=== PATIENT | female | born 1950 | race Caucasian/White ===

== ENCOUNTER 2018-03-05 10:16 | Outpatient (CLI) | payer BC, SELFPAY ==
[2018-03-05 14:16] LABS: Abs Immature Grans 0.01 k/cumm (0.0-0.09); Absolute Basophil Count 0.02 k/cumm (0.0-0.2); Absolute Eosinophil Count 0.19 k/cumm (0.0-0.7); Absolute Lymphocyte Count 1.12 k/cumm (1.2-3.4); Absolute Monocyte Count 0.37 k/cumm (0.11-0.7); Absolute Neutrophil Count 4.49 k/cumm (1.2-6.7); Basophils % 0.3; Eosinophils % 3.1; HCT 39.4 % (36.0-46.0); HGB 13.2 g/dL (12.0-15.5); Immature Grans % 0.2; Lymphocytes % 18.1; Mean Corp. HGB Concentration 33.5 g/dL (32.0-36.0); Mean Corpuscular Hemoglobin 30.6 pg (27.0-33.0); Mean Corpuscular Volume 91.2 fL (80-95); Mean Platelet Volume 11.3 fL (8.0-11.0); Neutrophils % 72.3; Platelet Count 192 x1000/uL (130-400); RBC 4.32 m/cumm (4.00-5.20); RBC Distribution Width 14.7 % (11.7-14.6)
[2018-03-05 15:22] LABS: Iron 53 ug/dL (50-175); Total Iron Binding Capacity 286 ug/dL (250-450); Transferrin Sat 19 % (15-50)
== END 2018-03-05 10:36 ==
PROVIDERS: PCP Internal Medicine; Visit Provider Internal Medicine
DX: D64.9 Anemia, unspecified (principal)
CPT/HCPCS: 36415; 83540; 83550; 85025

== ENCOUNTER 2018-03-17 13:45 | Outpatient (CLI) | payer BC, SELFPAY ==
[2018-03-17 17:18] LABS: Abs Immature Grans 0.01 k/cumm (0.0-0.09); Absolute Basophil Count 0.02 k/cumm (0.0-0.2); Absolute Eosinophil Count 0.19 k/cumm (0.0-0.7); Absolute Lymphocyte Count 1.34 k/cumm (1.2-3.4); Absolute Monocyte Count 0.39 k/cumm (0.11-0.7); Basophils % 0.3; Eosinophils % 2.9; HCT 40.2 % (36.0-46.0); HGB 13.4 g/dL (12.0-15.5); Immature Grans % 0.2; Lymphocytes % 20.8; Mean Corp. HGB Concentration 33.3 g/dL (32.0-36.0); Mean Corpuscular Hemoglobin 30.3 pg (27.0-33.0); Mean Platelet Volume 11.1 fL (8.0-11.0); Neutrophils % 69.8; Platelet Count 183 x1000/uL (130-400); RBC 4.42 m/cumm (4.00-5.20); RBC Distribution Width 14.9 % (11.7-14.6); White Blood Cell Count 6.45 k/cumm (4.4-10.8)
[2018-03-17 17:53] LABS: ALT 40 U/L (12-78); AST 22 U/L (15-37); Albumin 3.8 g/dL (3.4-5.0); Alkaline Phosphatase 87 U/L (46-116); Anion Gap 8.4 mmol/L (3-11); BUN 25 mg/dL (7-18); Bilirubin, Total 0.6 mg/dL (0.2-1.0); CO2 27.6 mmol/L (21.0-32.0); CREATININE 0.95 mg/dL (0.55-1.02); Chloride 105 mmol/L (98-107); Estimated GFR 58.85 (mL/min/1.73m2); Glucose 87 mg/dL (70-100); Potassium 3.9 mmol/L (3.5-5.1); Sodium 141 mmol/L (136-145); Total Protein 6.9 g/dL (6.4-8.2)
== END 2018-03-17 14:05 ==
PROVIDERS: PCP Internal Medicine; Visit Provider Internal Medicine
DX: Z85.3 Personal history of malignant neoplasm of breast (principal)
CPT/HCPCS: 36415; 80053; 85025

== ENCOUNTER 2019-02-19 00:20 | Outpatient (CLI) | payer BC, SELFPAY ==
[2019-02-19 11:02] LABS: Abs Immature Grans 0.01 k/cumm (0.0-0.09); Absolute Basophil Count 0.04 k/cumm (0.0-0.2); Absolute Eosinophil Count 0.31 k/cumm (0.0-0.7); Absolute Lymphocyte Count 1.16 k/cumm (1.2-3.4); Absolute Monocyte Count 0.33 k/cumm (0.11-0.7); Absolute Neutrophil Count 2.84 k/cumm (1.2-6.7); Basophils % 0.9; Eosinophils % 6.6; HCT 40.4 % (36.0-46.0); HGB 13.4 g/dL (12.0-15.5); Immature Grans % 0.2; Lymphocytes % 24.7; Mean Corp. HGB Concentration 33.2 g/dL (32.0-36.0); Mean Corpuscular Hemoglobin 29.8 pg (27.0-33.0); Neutrophils % 60.6; Platelet Count 199 x1000/uL (130-400); RBC 4.49 m/cumm (4.00-5.20); RBC Distribution Width 14.4 % (11.7-14.6); White Blood Cell Count 4.69 k/cumm (4.4-10.8)
[2019-02-19 12:20] LABS: Iron 66 ug/dL (50-175); Total Iron Binding Capacity 295 ug/dL (250-450); Transferrin Sat 22 % (15-50)
[2019-02-19 12:23] LABS: ALT 31 U/L (14-59); AST 17 U/L (15-37); Albumin 3.7 g/dL (3.4-5.0); Alkaline Phosphatase 81 U/L (46-116); Anion Gap 9.6 mmol/L (3-11); BUN 25 mg/dL (7-18); Bilirubin, Total 0.9 mg/dL (0.2-1.0); CO2 26.4 mmol/L (21.0-32.0); CREATININE 1.14 mg/dL (0.55-1.02); Calcium 8.9 mg/dL (8.5-10.1); Chloride 108 mmol/L (98-107); Estimated GFR 47.54 (mL/min/1.73m2); Glucose 97 mg/dL (70-100); Potassium 4.4 mmol/L (3.5-5.1); Sodium 144 mmol/L (136-145); Total Protein 6.6 g/dL (6.4-8.2)
== END 2019-02-19 00:40 ==
PROVIDERS: PCP Internal Medicine; Visit Provider Internal Medicine
DX: I10 Essential (primary) hypertension (principal); D64.9 Anemia, unspecified; R50.9 Fever, unspecified
CPT/HCPCS: 36415; 80053; 83540; 83550; 85025

== ENCOUNTER 2020-01-30 04:06 | Outpatient (CLI) | payer OTHER, SELFPAY ==
[2020-01-30 17:22] LABS: CREATININE 1.23 mg/dL (0.55-1.02); Estimated GFR 43.42 (mL/min/1.73m2); Glucose 92 mg/dL (74-106)
[2020-01-30 17:49] LABS: Calculated LDL 125 mg/dL (<100); Cholesterol 205 mg/dL (<200); HDL Cholesterol 53 mg/dL (40-60); Triglyceride 137 mg/dL (<150)
== END 2020-01-30 04:26 ==
PROVIDERS: Nurse Practitioner Family; PCP Nurse Practitioner; Visit Provider Nurse Practitioner
DX: I10 Essential (primary) hypertension (principal); D05.10 Intraductal carcinoma in situ of unspecified breast
CPT/HCPCS: 36415; 80061; 82947; 82565

== ENCOUNTER 2021-02-07 02:11 | Outpatient (CLI) | payer OTHER, SELFPAY ==
[2021-02-07 16:39] LABS: CREATININE 1.1 mg/dL (0.55-1.02); Calculated LDL 110 mg/dL (<100); Cholesterol 203 mg/dL (<200); Estimated GFR 49.25 (mL/min/1.73m2); HDL Cholesterol 51 mg/dL (40-60); Triglyceride 210 mg/dL (<150)
== END 2021-02-07 02:12 | disposition home or self-care (01) ==
LOC: LBO 02:11
PROVIDERS: PCP Nurse Practitioner; Visit Provider Nurse Practitioner
DX: I10 Essential (primary) hypertension (principal); Z13.6 Encounter for screening for cardiovascular disorders
CPT/HCPCS: 36415; 80061; 82565

== ENCOUNTER 2021-04-04 02:15 | Outpatient (CLI) | payer OTHER, SELFPAY ==
--- NOTE | 2021-04-04 07:00 | DI.DEXA_ITS ---
Exam(s) XR DEXA BONE DENSITY W/WO OPAL EXAM: XR DEXA BONE DENSITY W/WO OPAL CLINICAL HISTORY: SCREENING FOR OSTEOPOROSIS IN POSTMENOPAUSAL WOMAN,Z78.0 TECHNIQUE: Eptica C densitometer COMPARISON: No exams were available for comparison FINDINGS: Lateral view of the thoracic and lumbar spine shows no evidence of compression fractures. Degenera tive changes are noted greatest at L2-3. Bone mineral density measurements of the lumbar spine correspond to a total T-score of 0.2, in the n ormal range. Bone mineral density measurements of the left hip correspond to a total T-score of -0.7. The femora l neck T-score is -1.7, in the osteopenic range. . The left forearm bone mineral density measurements correspond to a T-score of the distal 3rd of nega tive 2.7, in the osteoporotic range.. IMPRESSION: Osteopenia of the left femoral neck. Normal bone mineral density of the lumbar spine. Osteoporosis of the forearm.
== END 2021-04-04 02:35 ==
PROVIDERS: PCP Nurse Practitioner; Visit Provider Nurse Practitioner
DX: M81.0 Age-related osteoporosis without current pathological fracture (principal); M85.88 Other specified disorders of bone density and structure, other site; Z78.0 Asymptomatic menopausal state
CPT/HCPCS: 77080

== ENCOUNTER 2021-07-25 02:27 | Outpatient (CLI) | payer MEDICARE, SELFPAY ==
[2021-07-25 16:58] LABS: COMMENT (LAB VIEW ONLY) 203.16 mg/dL; Microalb ug/mg Crea 4.4 ug/mg Cr
[2021-07-25 17:48] LABS: Anion Gap 9.3 mmol/L (3-11); BUN 24 mg/dL (7-18); CO2 28.7 mmol/L (21.0-32.0); CREATININE 1.1 mg/dL (0.55-1.02); Calcium 9.1 mg/dL (8.5-10.1); Calculated LDL 85 mg/dL (<100); Chloride 106 mmol/L (98-107); Cholesterol 165 mg/dL (<200); Estimated GFR 49.25 (mL/min/1.73m2); Glucose 105 mg/dL (74-106); HDL Cholesterol 54 mg/dL (40-60); Sodium 144 mmol/L (136-145); Triglyceride 132 mg/dL (<150)
== END 2021-07-25 02:28 | disposition home or self-care (01) ==
PROVIDERS: PCP Nurse Practitioner; Visit Provider Nurse Practitioner
DX: N18.31 Chronic kidney disease, stage 3a (principal); E78.5 Hyperlipidemia, unspecified
CPT/HCPCS: 36415; 80048; 80061; 82043; 82570

== ENCOUNTER 2023-01-27 02:33 | Outpatient (CLI) | payer MEDICARE, SELFPAY ==
[2023-01-27 08:50] LABS: Absolute Basophil Count 0.06 10^3/uL (0.0-0.2); Absolute Eosinophil Count 0.18 10^3/uL (0.0-0.7); Absolute Lymphocyte Count 1.15 10^3/uL (1.2-3.4); Absolute Monocyte Count 0.29 10^3/uL (0.1-0.8); Absolute Neutrophil Count 3.06 10^3/uL (1.2-6.7); Basophils % 1.3; Eosinophils % 3.8; HCT 40.4 % (36.0-46.0); HGB 13.4 g/dL (11.2-15.7); Lymphocytes % 24.3; MCHC 33.2 % (32.0-36.0); MCV 90 fL (80-95); MPV 10.3 fL (8.0-11.0); Monocytes % 6.1; Neutrophils % 64.5; Platelet Count 194 10^3/uL (130-400); RBC 4.47 10^6/uL (3.93-5.22); RDW 14.2 % (11.7-14.6); RDW-SD 47.3 fL; WBC 4.74 10^3/uL (4.4-10.8)
[2023-01-27 09:03] LABS: ALT 27 U/L (14-59); AST 18 U/L (15-37); Albumin 3.5 g/dL (3.4-5.0); Alkaline Phosphatase 88 U/L (46-116); Anion Gap 6.5 mmol/L (3-11); BUN 14 mg/dL (7-18); Bilirubin, Total 0.9 mg/dL (0.2-1.0); CO2 27.5 mmol/L (21.0-32.0); CREATININE 1.1 mg/dL (0.55-1.02); Calcium 9.1 mg/dL (8.5-10.1); Chloride 108 mmol/L (98-107); Estimated GFR 53.72 (mL/min/1.73m2); Glucose 105 mg/dL (74-106); Potassium 4.3 mmol/L (3.5-5.1); Sodium 142 mmol/L (136-145); Total Protein 6.9 g/dL (6.4-8.2)
== END 2023-01-27 02:34 | disposition home or self-care (01) ==
LOC: LBO 02:33
PROVIDERS: PCP Nurse Practitioner Family; Visit Provider Internal Medicine
DX: Z85.3 Personal history of malignant neoplasm of breast (principal)
CPT/HCPCS: 36415; 80053; 85025

== ENCOUNTER 2024-04-15 00:20 | Outpatient (CLI) | payer MEDICARE, SELFPAY ==
--- OUTSIDE RECORDS SUMMARY | 2024-04-15 00:34 | XMS_ITS | Clinical Summary ---
Author Organization [facility] Address [address] [place] [address] Care Team Providers Care Stone Finisher Name Role Phone Linda Coleman MD Primary Care Provider Social History Tobacco Use Types Packs/Day Years Used Date Smoking Tobacco: Never Assessed Comments Unknown Sex and Gender Information Value Date Recorded Sex Assigned at Not on file Legal Sex Female 18:19 EST Gender Identity Not on file Sexual Orientation Not on file Plan of Treatment Health Maintenance Due Date Last Done Comments Hepatitis C Screen 1950 Fall Risk Screening 11/19/2016 COVID-19 Vaccine (2023-25 season) 2023 RSV Immunization ( o r 60+ Years) (1 - 1-dose 75+ series) 11/19/2026 Care Teams Stone Finisher Relationship Specialty Start Date End Date Linda Coleman MD [address] [place] [address] PCP - General 02/16/15
--- OUTSIDE RECORDS SUMMARY | 2024-04-15 00:34 | XMS_ITS | Encounter Summary ---
Author Organization [facility] Address [address] [place] [address] Care Team Providers Care Oil Rigger Name Role Phone Unavailable Primary Care Provider Unavailabl e Encounter Details Date Type Department Care Team (Late st Contact Info) Description 04/08/2001 Results Only [facility] - [facility] [address] [place] [address] Suraj Leach, DO [address] [facility] [address] [place], [place] [id number] Social History Tobacco Use Types Packs/Day Years Used Date Smoking Tobacco: Never Assessed Comments Unknown Sex and Gender Information Value Date Recorded Sex Assigned at Not on file Legal Sex Female 18:19 EST Gender Identity Not on file Sexual Orientation Not on file documented as of this encounter Plan of Treatment Not on file documented as of this encounter Procedures Procedure Name Priority Date/Time Associated Diagnosis Comments SURGICAL PATHOLOGY Routine 04/08/2001 0:00 EST documented in this encounter Results * SURGICAL PATHOLOGY (04/08/2001 0:00 EST) Pathology Report: SURGICAL PATHOLOGY REPORT Reports generated via electronic interface contain original data; however they are lacking the format of the original report. Caution should be taken when reading/interpreti ng unformatted reports. Name: ? ANGELA CASPER ? Accession #: ? [id number] ? : ? 1950 (Age: 50) ??F ? Collect Date: ? 04/08/2001 ? Location: ? [facility] ? Receive Date: ? 04/08/2001 ? Provider: SURAJ LEACH DO Copy to: FERNANDA BECKFORD MD ? Final Pathologic Diagnosis: A. ?Skin of arm, right upper, excisional biopsy: 1. ?Melanocytic nevus, intradermal type. B. ?Cecum, polyp, polypectomy: 1. ?Tubular adenoma. 2. ?No high grade dysplasia identified. Document reviewed and electronically signed by: Osmani Scott MD Report ??Date: 04/12/2001 10:57 By the signature above, the attending physician certifies that he/she has personally conducted a gross and/or microscopic examination of the described specimens and rendered or confirmed the above diagnosis. Specimen(s) Received: A. ?Skin lesion, rt upper arm (#1) B. ?Cecal polyp Clinical History: ? Family hx of colon ca Gross Description: ? Received in formalin labelled Garrett and 1. Skin lesion rt upper arm is a tom, unoriented, 2.5 x 1.0 cm skin ellipse excised to a depth of 0.6 cm. There is a central, tom-valle, granular, hear bearing, 1.0 x 0.9 x 0.2 cm papule. The specimen is inked, serially sectioned, and is entirely submitted as (A1) through (A4) with the distal tips submitted reverse en face as (A4). Received in Hollande' s fixative labelled Garrett and 2. Cecal polyp is a tom, irregular, 0.4 x 0.2 x 0.2 cm soft tissue fragment. ??The specimen is entirely submitted as (B). ??(Sari Anaya)/dtl End of Report [facility] 04/08/2001 04/08/2001 15: 24 EST Suraj Leach DO PATHOLOGY ORDERABLES Fi nal Result [facility] [address] [place] [address] documented in this encounter Visit Diagnoses Not on filedocumented in this encounter
--- OUTSIDE RECORDS SUMMARY | 2024-04-15 00:34 | XMS_ITS | Encounter Summary ---
Author Organization [facility] Address [address] [place] [address] Care Team Providers Care Recruit Instructor Name Role Phone Linda Coleman MD Primary Care Provider [phone] Encounter Details Date Type Department Care Team (Late st Contact Info) Description 05/15/2015 Results Only [facility] [phone] Greer Dasilva, MARLENY [address] [phone] Social History Tobacco Use Types Packs/Day Years [...] Procedure Name Priority Date/Time Associated Diagnosis Comments PAP TEST- RESULT ONLY Routine 05/15/2015 0:00 EST documented in this encounter Results * PAP TEST- RESULT ONLY (05/15/2015 0:00 EST) Pathology Report: CYTOPATHOLOGY REPORT Reports generated via electronic interface contain original data; however they are lacking the format of the original report. Caution should be taken when reading/interpreti ng unformatted reports. Name: ? ANGELA TUCKER ? Accession #: ? [id number] ? : ? 1950 (Age: 64) ??F ?Collect Date: ? 05/15/2015 ? Location: ? [facility] ? Receive Date: ? 05/17/2015 ? Provider: GREER DASILVA ENGRAVER HAND HARD METALS Copy to: ? Final Report SPECIMEN ADEQUACY ? Satisfactory for Evaluation - transformation zone component present GENERAL CATEGORIZATION ? Negative for Intraepithelial Lesion or Malignancy ?? Treatment History: Hysterectomy: S/P Partial Specimen/Source: ??Pap Test, Cervix/Endocervix, ThinPrep Imaging System with manual evaluation Document reviewed and electronically signed by: ? Asad Cook, CT(ASCP) ? Report ??Date: 05/22/2015 15:05 HPV with Pap Test ? Date Ordered: ? 05/22/2015 ? Status: ?? Signed Out ?Date Complete: ? 05/24/2015 ? By: ??System Interface ? Date Reported: ? 05/24/2015 ? Interpretation RESULT: Negative for HPV. No E6 or E7 mRNA is detected from HPV types 16,18,31,33,35, 39,45,51,52,56,58, 59,66, and 68 by personal consultant mediated amplification. Comments Document reviewed and electronically signed by: ? System Interface ? Report date: 05/24/2015 By the signature above, the attending physician certifies that he/she has personally conducted a gross and/or microscopic examination of the described specimens and rendered or confirmed the above diagnosis. End of Report [facility] 05/15/2015 05/17/2015 us Greer Dasilva ENGRAVER HAND HARD METALS PATHOLOGY ORDERABLES Final Resul t [facility] [address] [place] [address] documented in this encounter Visit Diagnoses Not on filedocumented in this encounter Care Teams Recruit Instructor Relationship Specialty Start Date End Date Linda Coleman MD [address] [place], [place] [phone] PCP - General 02/16/15 documented as of this encounter
--- OUTSIDE RECORDS SUMMARY | 2024-04-15 00:34 | XMS_ITS | Encounter Summary ---
Author Organization [facility] Address [address] [place] [address] Care Team Providers Care School Plant Consultant Name Role Phone Unavailable Primary Care Provider Unavailabl e Encounter Details Date Type Department Care Team (Late st Contact Info) Description 11/28/2008 Orders Only [facility] ([facility]) [address] [place] [address] [phone] Vicky Doyle PA Social History Tobacco Use Types Packs/Day Years [...] Procedure Name Priority Date/Time Associated Diagnosis Comments HPV DETECTION, HIGH RISK TYPES Routine 11/28/2008 8:57 EDT CYTOPATHOLOGY Routine 11/28/2008 0:00 EDT documented in this encounter Results * HUMAN PAPILLOMA VIRUS DNA TEST (11/28/2008 8:57 EDT) Specimen Description Cervix, ThinPrep vial [facility] Result Negative for HPV types 16, 18, 31, 33, 35, 39, 45, 51, 52, 56, 58, 59, and 68. [facility] Report Status Final 12/07/2008 [facility] 11/28/2008 8:57 EDT 12/05/2008 8:57 EDT Vicky CONNELL MICROBIOLOGY - GENERAL ORDERABLE S Final Result [facility] [address] [address] * CYTOPATHOLOGY (11/28/2008 0:00 EDT) Pathology Report: CYTOPATHOLOGY REPORT ? Reports generated via electronic interface contain original data; ? however they are lacking the format of the original report. ? Caution should be taken when reading/interpreti ng unformatted reports. ? Name: ? ANGELA CASPER ? Accession #: ? [id number] ? : ? 1950 (Age: 58) ??F ?Collect Date: ? 11/28/2008 ? Location: ? [facility] ? Receive Date: ? 11/29/2008 ? Provider: ?VICKY SERGO PA ? Copy to: ? Specimen/Source: ?Pap Test, Cervix/Endocervix, ThinPrep Imaging System ? with manual evaluation ? Last Menstrual Period: ? Menstrual/Pregnanc y Status: ? Post Menopausal ? Treatment History: ? Hysterectomy: partial 2000 ? Other: ? HPVDX - HPV testing requested regardless of diagnosis on current ThinPrep Pap ?? test. ? SPECIMEN ADEQUACY ? Satisfactory for Evaluation ? - transformation zone component present ? GENERAL CATEGORIZATION ? Negative for Intraepithelial Lesion or Malignancy ? Document reviewed and electronically signed by: ? Olivia Loulou, CT(ASCP) ? Report Date: ??12/04/2008 14:14 ? End of Report ? [facility] 11/28/2008 11/29/2008 us Vicky CONNELL PATHOLOGY ORDERABLES Final Resul t Performing Organization Address City/State/[facility] Co de Phone Number [facility] [address] [place] [address] documented in this encounter Visit Diagnoses Not on filedocumented in this encounter
--- OUTSIDE RECORDS SUMMARY | 2024-04-15 00:34 | XMS_ITS | Encounter Summary ---
Author Organization [facility] Address [address] [place] [address] Care Team Providers Care Brine Process Operator Name Role Phone Unavailable Primary Care Provider Unavailabl e Encounter Details Date Type Department Care Team (Late st Contact Info) Description 09/06/2004 Results Only [facility] - Maple conversion [address] [place] [address] Suraj Leach, DO [address] [facility] [address] [place], [place] [phone] Social History Tobacco Use Types Packs/Day Years [...] Date/Time Associated Diagnosis Comments SURGICAL PATHOLOGY Routine 09/06/2004 0:00 EDT documented in this encounter Results * SURGICAL PATHOLOGY (09/06/2004 0:00 EDT) Pathology Report: SURGICAL PATHOLOGY REPORT Reports generated via electronic interface contain original data; however they are lacking the format of the original report. Caution should be taken when reading/interpreti ng unformatted reports. Name: ? ANGELA CASPER ? Accession #: ? [id number] ? : ? 1950 (Age: 53) ??F ? Collect Date: ? 09/06/2004 ? Location: ? [facility] ? Receive Date: ? 09/06/2004 ? Provider: SURAJ LEACH DO Copy to: KATE BECKFORD MD ? Final Pathologic Diagnosis: ? Colon, cecum, polyp, biopsy: - Tubular adenoma. Document reviewed and electronically signed by: LAZ GRAHAM MD Report ??Date: 09/11/2004 10:07 By the signature above, the attending physician certifies that he/she has personally conducted a gross and/or microscopic examination of the described specimens and rendered or confirmed the above diagnosis. Specimen(s) Received: ? Bx cecum Clinical History: ? Colonoscopy; PMH approximately four years ago adenomatous polyp Gross Description: ? Received in Hollande' s fixative labeled Garrett and bx cecum is a single 0.3 x 0.3 x 0.2 cm portion of soft tissue. ??The specimen is submitted intact in one cassette. ??(Dr. Tavares Houston-)/[facility] End of Report [facility] 09/06/2004 09/06/2004 9:4 9 EDT us Suraj Leach DO PATHOLOGY ORDERABLES Fi nal Result [facility] [address] [place] [address] documented in this encounter Visit Diagnoses Not on filedocumented in this encounter
--- OUTSIDE RECORDS SUMMARY | 2024-04-15 00:34 | XMS_ITS | Referral Summary ---
Author Organization [facility] Address [address] [place] [address] Care Team Providers Care State Director Name Role Phone Linda Coleman MD Primary Care Provider [phone] Social History Tobacco Use Types Packs/Day Years Used Date Smoking Tobacco: Never Assessed Comments Unknown Sex and Gender Information Value Date Recorded Sex Assigned at Not on file Legal Sex Female 18:19 EST Gender Identity Not on file Sexual Orientation Not on file Plan of Treatment Not on file Care Teams State Director Relationship Specialty Start Date End Date Linda Coleman MD [address] [place] [address] PCP - General 02/16/15
--- NOTE | 2024-04-15 11:20 | DI.MAMMO_ITS ---
Exam(s) MG MAMMO SCREENING 60 MIN DUR EXAM: MG MAMMO SCREENING 60 MIN DUR CLINICAL HISTORY: breast cancer screening,personal h/o breast ca,z12.31. TECHNIQUE: Bilateral full field digital CC and MLO mammographic images were obtained with 3D tomosyn thesis and utilizing computer aided detection (CAD). COMPARISON: Prior outside mammograms were reviewed. FINDINGS: Left breast lumpectomy site remains stable. There are no new significant left breast findings. Small benign-appearing nodule located laterally in the right breast is unchanged from prior mammogram s. There are no new spiculated masses nor malignant appearing microcalcification groups. There is no significant architectural distortion nor skin thickening-retraction. IMPRESSION: 1. Stable appearing left breast lumpectomy site. No radiographic evidence of malignancy in left [address]. 2. Stable benign-appearing right breast findings. BI-RADS Category 2 - Benign Findings Breast Density - Category B - Scattered areas of fibroglandular density Breast density Category C or D implies that the patient has dense breast tissue. Dense breast tissue can make it harder to find cancer on a mammogram. Dense breast tissue is also associated with an incr eased risk of breast cancer. This information about the result of the mammogram report was provided to the patient to raise their awareness. Use this report when you speak with the patient about their risks for breast cancer, which includes their family history. At that time, you may recommend additional screening tests (Ultrasoun d or MRI) as these tests may add significant information. A negative radiographic report should not delay biopsy if a dominant or clinically suspicious mass is present. Up to ten percent of cancers are not identified on mammography. A negative report may reinforce clinical impression. Adenosis and dense breasts may obscure an underlying neoplasm. False positive reports average 6 to 10%. Patient will receive a letter notifying them of these results.
== END 2024-04-15 00:40 ==
PROVIDERS: PCP Nurse Practitioner Family; Visit Provider Nurse Practitioner Family
DX: Z12.31 Encounter for screening mammogram for malignant neoplasm of breast (principal); R92.323 Mammographic fibroglandular density, bilateral breasts; D24.1 Benign neoplasm of right breast; D24.2 Benign neoplasm of left breast
CPT/HCPCS: 77063; 77067

== ENCOUNTER 2024-05-12 22:34 | Outpatient (REF) | payer MEDICARE, SELFPAY ==
[2024-05-12 22:29] LABS: Anion Gap 7.3 mmol/L (3-11); BUN 21 mg/dL (7-18); CO2 25.7 mmol/L (21.0-32.0); Calcium 9.7 mg/dL (8.5-10.1); Chloride 109 mmol/L (98-107); Estimated GFR 59.86 (mL/min/1.73m2); Glucose 90 mg/dL (74-106); Potassium 4.2 mmol/L (3.5-5.1); Sodium 142 mmol/L (136-145)
== END 2024-05-12 22:35 | disposition home or self-care (01) ==
LOC: LBN 22:34
PROVIDERS: PCP Nurse Practitioner Family; Visit Provider Nurse Practitioner Family
DX: I10 Essential (primary) hypertension (principal)
CPT/HCPCS: 80048

== ENCOUNTER 2024-10-04 16:33 | Outpatient (REF) | payer MEDICARE, SELFPAY ==
[2024-10-04 21:21] LABS: Anion Gap 8.8 mmol/L (3-11); BUN 26 mg/dL (7-18); CO2 25.2 mmol/L (21.0-32.0); CREATININE 1.1 mg/dL (0.55-1.02); Calcium 9.7 mg/dL (8.5-10.1); Chloride 105 mmol/L (98-107); Estimated GFR 53.39 (mL/min/1.73m2); Glucose 83 mg/dL (74-106); Hemoglobin A1C 5.5 % (<5.7); Potassium 4.4 mmol/L (3.5-5.1); Sodium 139 mmol/L (136-145); TSH (W/Ref FT4) 4.08 uIU/mL (0.36-3.74)
[2024-10-04 21:41] LABS: FREE T4 0.89 ng/dL (0.76-1.46)
== END 2024-10-04 16:34 | disposition home or self-care (01) ==
LOC: LBN 16:33
PROVIDERS: PCP Nurse Practitioner Family; Visit Provider Nurse Practitioner Family
DX: R73.9 Hyperglycemia, unspecified (principal); R63.5 Abnormal weight gain
CPT/HCPCS: 80048; 83036; 84439; 84443

== ENCOUNTER 2025-02-14 01:21 | Outpatient (CLI) | payer MEDICARE, SELFPAY ==
[2025-02-14 09:55] LABS: Abs Immature Grans 0.01 10^3/uL (0.0-0.06); HCT 40.8 % (36.0-46.0); HGB 13.2 g/dL (11.2-15.7); Immature Grans % 0.2 %; MCH 29.5 pg (27.0-33.0); MCHC 32.4 % (32.0-36.0); MCV 91 fL (80-95); MPV 11.1 fL (8.0-11.0); Platelet Count 204 10^3/uL (130-400); RBC 4.48 10^6/uL (3.93-5.22); RDW 14.1 % (11.7-14.6); RDW-SD 47.3 fL; WBC 5.50 10^3/uL (4.4-10.8)
[2025-02-14 09:59] LABS: ALT 29 U/L (14-59); AST 18 U/L (15-37); Albumin 3.6 g/dL (3.4-5.0); Alkaline Phosphatase 86 U/L (46-116); Anion Gap 6.8 mmol/L (3-11); BUN 21 mg/dL (7-18); Bilirubin, Total 0.8 mg/dL (0.2-1.0); CO2 28.2 mmol/L (21.0-32.0); Calcium 9.6 mg/dL (8.5-10.1); Chloride 108 mmol/L (98-107); Estimated GFR 53.06 (mL/min/1.73m2); Glucose 116 mg/dL (74-106); Potassium 4.3 mmol/L (3.5-5.1); Sodium 143 mmol/L (136-145); Total Protein 7.0 g/dL (6.4-8.2)
== END 2025-02-14 01:22 | disposition home or self-care (01) ==
LOC: LBO 01:21
PROVIDERS: PCP Nurse Practitioner Family; Visit Provider Nurse Practitioner
DX: C50.812 Malignant neoplasm of overlapping sites of left female breast (principal); Z17.1 Estrogen receptor negative status [ER-]
CPT/HCPCS: 36415; 80053; 85025

== ENCOUNTER 2025-04-02 10:33 | Inpatient (IN) | payer MEDICARE, SELFPAY ==
[2025-04-02] VITALS (23 sets, daily range): BP systolic 162–225; BP diastolic 65–149; PULSE 65–90; RESP 14–25; TEMP 36.3–36.7; O2SAT 94–99
--- NOTE | 2025-04-02 10:45 | RT.EKG_ITS ---
APPROVED REPORT Exam: Resting ECG Reason for Exam: weakness Patient Location: E HR:80 bpm ECG Measurements Heart Rate 80 AXIS MT 162 P 27 QRSd 99 QRS -10 QT 403 T 32 QTc 466 Conclusion Sinus rhythm...normal P axis, V-rate 60- 99 Low voltage, precordial leads...precordial leads <1.0mV No Occlusion WI
--- NOTE | 2025-04-02 10:45 | DI.CT_ITS ---
Exam(s) CT BRAIN NECK CTA EXAM: CT BRAIN NECK CTA CLINICAL HISTORY: slurred speech right foot weakness. TECHNIQUE: Imaging Protocol: Axial CT angiography was performed with multi- slice acquisition and multi-planar and/or 3D reconstructions. CONTRAST MATERIAL: Intravenous: Omnipaque 350 contrast volume:70 mL COMPARISON: No exams were available for comparison FINDINGS: The examination is limited due to patient motion artifact. CT Head W/O and W: Ventricles and Extra axial spaces: Normal in size and morphology for the patient's age. Hemorrhage: None. 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 There is no acute mass effect or evidence of an acute territorial infarct. Midline shift: None. Brainstem/Cerebellum: Normal. Calvarium: Normal. Visualized Paranasal sinuses/Mastoids: Clear. Soft Tissues: Unremarkable. Enhancement: Unremarkable. CTA Neck W: Common Carotid: Right: No dissection, occlusion or significant stenosis. There is mild atherosclerotic calcification in the carotid bulb with less than 50 percent stenosis. Left: No dissection, occlusion or significant stenosis. There is mild atherosclerotic calcification in the carotid bulb with less than 50 percent stenosis. External Carotid: Right: No occlusion or significant stenosis. Left: No occlusion or significant stenosis. Internal Carotid: Right: No dissection, occlusion or significant stenosis. Left: No dissection, occlusion or significant stenosis. There is atherosclerotic calcifications seen in the proximal internal carotid artery with approximately 50 percent stenosis. Vertebral Artery: Right: No dissection, occlusion or significant stenosis. Left: No dissection, occlusion or significant stenosis. Lung Apices: Normal. Bones: Within normal limits for the patient's age. Soft Tissues: Normal. Thyroid gland: There are no suspicious thyroid nodules. CTA Brain W: Internal Carotid Arteries: Atherosclerotic calcification is seen in the cavernous internal carotid arteries bilaterally with less than 50 percent stenosis. Anterior Cerebral Arteries: Right: No aneurysm, occlusion or significant stenosis. Left: No aneurysm, occlusion or significant stenosis. Middle Cerebral Arteries: Right: No aneurysm, occlusion or significant stenosis. Left: No aneurysm, occlusion or significant stenosis. Posterior Cerebral Arteries: Right: No aneurysm, occlusion or significant stenosis. Left: No aneurysm, occlusion or significant stenosis. Vertebral Arteries: Right: No aneurysm, occlusion or significant stenosis. Left: No aneurysm, occlusion or significant stenosis. Basilar Artery: No aneurysm, occlusion or significant stenosis. IMPRESSION: 1. No large vessel occlusion or significant stenosis on the CT angiography of the head. 2. No acute intracranial process. 3. No occlusion or significant stenosis on the CT angiography of the neck. 4. The preliminary [facility] report was reviewed. RADIATION DOSE DELIVERED: 2,245.93mGy.cm Total DLP DATA REPOSITORY: All CT scans at this facility are submitted to the National Radiology Data Registry (NRDR) Dose Index Registry (DIR) with the [employer] (ACR). RADIATION OPTIMIZATION: All CT scans at this facility use at least one of these dose optimization techniques: automated exposure control; mA and/or kV adjustment per patient size (includes targeted exams where dose is matched to clinical indication); or iterative reconstruction.
--- NOTE | 2025-04-02 10:48 | DI.RAD_ITS ---
Exam(s) XR CHEST 1V IN DI DEPT EXAM: XR CHEST 1V IN DI DEPT CLINICAL HISTORY: tia TECHNIQUE: 2D digital imaging was performed of the chest. One image was obtained. An AP view was obtained. COMPARISON: CR CHEST 2 VIEWS PA,LAT from 07/31/2016 FINDINGS: MEDIASTINUM: Normal. HEART: Normal. PULMONARY VASCULATURE: Normal. LUNGS: Clear. PLEURAL SPACE: No pleural effusion or pneumothorax. BONE:Within normal limits for the patient's age. OTHER FINDINGS:Normal. IMPRESSION: 1. No acute pulmonary findings. 2. The preliminary [facility] report was reviewed. DATA REPOSITORY: RADIATION DOSE DELIVERED:
[2025-04-02] MEDS: Omnipaque 350 MG/ML 100 ML BTL IJ (10:53)
[2025-04-02] MEDS: Normal Saline - Diluent 50 ML VIAL IJ (10:53)
[2025-04-02 10:58] LABS: Abs Immature Grans 0.03 10^3/uL (0.0-0.06); HCT 42.9 % (36.0-46.0); HGB 14.2 g/dL (11.2-15.7); Immature Grans % 0.3 %; MCH 29.4 pg (27.0-33.0); MCHC 33.1 % (32.0-36.0); MCV 89 fL (80-95); MPV 11.0 fL (8.0-11.0); Platelet Count 218 10^3/uL (130-400); RBC 4.83 10^6/uL (3.93-5.22); RDW 14.2 % (11.7-14.6); RDW-SD 46.0 fL; WBC 8.60 10^3/uL (4.4-10.8)
[2025-04-02 11:12] LABS: INR 1.0 (0.9-1.1); PTT Activated 25.8 sec (20.6-30.2); Prothrombin Time 9.6 sec (9.1-11.1)
[2025-04-02 11:14] LABS: Troponin I 4 ng/L (<35)
--- NOTE | 2025-04-02 11:14 | DI.[facility]_ITS ---
PROCEDURE INFORMATION: Exam: CTA Head Without And With Contrast, Arteriography Exam date and time: 04/02/2025 10:48 AM Age: 74 years old Clinical indication: Stroke-like symptoms; Other: Slurred speech right foot weakness TECHNIQUE: Imaging protocol: Computed tomographic angiography of the head without and with contrast. Exam focused on the arteries. 3D rendering (Not supervised by radiologist): MIP and/or 3D reconstructed images were created by the technologist. Contrast material: OMNIPAQUE 350; Contrast volume: 70 ml; Contrast route: INTRAVENOUS (IV); Other technique: STROKE PROTOCOL was implemented. COMPARISON: No relevant prior studies available. FINDINGS: ANTERIOR CIRCULATION: Right internal carotid artery: Intracranial segment is patent with no significant stenosis or occlusion. No aneurysm. Right middle cerebral artery: No occlusion or significant stenosis. No aneurysm. Right anterior cerebral artery: No occlusion or significant stenosis. No aneurysm. Left internal carotid artery: Intracranial segment is patent with no significant stenosis. No aneurysm. Left middle cerebral artery: No occlusion or significant stenosis. No aneurysm. Left anterior cerebral artery: No occlusion or significant stenosis. No aneurysm. POSTERIOR CIRCULATION: Right vertebral artery: No occlusion or significant stenosis. No aneurysm. Left vertebral artery: No occlusion or significant stenosis. No aneurysm. Basilar artery: No occlusion or significant stenosis. No aneurysm. Right posterior cerebral artery: No occlusion or significant stenosis. No aneurysm. Left posterior cerebral artery: No occlusion or significant stenosis. No aneurysm. HEAD: Brain: There are old infarcts in the left basal ganglia and left temporal lobe. No acute hemorrhage. Unremarkable white matter. No mass effect. Cerebral ventricles: Normal. No ventriculomegaly. Bones: Unremarkable. No acute fracture. Paranasal sinuses: Visualized sinuses are normal. No fluid levels. Mastoid air cells: Visualized mastoids are normal. No mastoid effusion. Soft tissues: Unremarkable. IMPRESSION: 1. No large vessel occlusion. 2. No acute abnormality. ASSESSMENT: ASPECTS ([place] Stroke Program Early CT Score) is 10. PROCEDURE INFORMATION: Exam: CTA Neck Without And With Contrast Exam date and time: 04/02/2025 10:48 AM Age: 74 years old Clinical indication: Stroke-like symptoms; Other: Slurred speech right foot weakness TECHNIQUE: Imaging protocol: Computed tomographic angiography of the neck without and with contrast. Exam focused on the cervical segments of the vasculature. 3D rendering (Not supervised by radiologist): MIP and/or 3D reconstructed images were created by the technologist. Contrast material: OMNIPAQUE 350; Contrast volume: 70 ml; Contrast route: INTRAVENOUS (IV); COMPARISON: No relevant prior studies available. FINDINGS: Right common carotid artery: No stenosis. No dissection or occlusion. Right internal carotid artery: No stenosis of the extracranial segment. No dissection or occlusion. Right external carotid artery: No occlusion or stenosis of the origin. Left common carotid artery: Calcified plaque at the left carotid bifurcation. Left internal carotid artery: There is a mild less than 50% stenosis in the proximal left internal carotid artery. Left external carotid artery: No occlusion or stenosis of the origin. Right vertebral artery: No stenosis. No dissection or occlusion. Left vertebral artery: No stenosis. No dissection or occlusion. Thyroid: Multiple thyroid cysts. Soft tissues: Normal. No significant soft tissue swelling. Bones/joints: No acute fracture. IMPRESSION: Mild less than 50% stenosis in the proximal left internal carotid artery. REFERENCES: NASCET CRITERIA. The degree of stenosis in the cervical segment of the internal carotid artery is based on NASCET criteria. Normal is no stenosis. Mild is less than 50% stenosis. Moderate is 50-69% stenosis. Severe is 70% to 99% stenosis. Total occlusion is no detectable patent lumen. Dictated and Authenticated by: Amberly Leonard MD. Orderin Kisha Landin MD
--- NOTE | 2025-04-02 11:14 | DI.VRAD_ITS ---
PROCEDURE INFORMATION: Exam: XR Chest Exam date and time: 04/02/2025 11:03 AM Age: 74 years old Clinical indication: Other: TIA TECHNIQUE: Imaging protocol: Radiologic exam of the chest. Views: 1 view. COMPARISON: CT BRAIN NECK CTA 04/02/2025 10:48 AM FINDINGS: Lungs: Unremarkable. No consolidation. Pleural spaces: Unremarkable. No pleural effusion. No pneumothorax. Heart/Mediastinum: Unremarkable. No cardiomegaly. Bones/joints: Unremarkable. IMPRESSION: No acute findings. Dictated and Authenticated by: Amberly Leonard MD. Orderin Kisha Landin MD
[2025-04-02 11:15] LABS: Magnesium 2.1 mg/dL (1.6-2.6)
[2025-04-02 11:16] LABS: ALT 27 U/L (10-49); AST 28 U/L (<34); Albumin 4.4 g/dL (3.2-5.0); Alkaline Phosphatase 103 U/L (46-116); Anion Gap 9.8 mmol/L (3-11); BUN 21 mg/dL (9-23); Bilirubin, Total 0.9 mg/dL (0.2-1.2); CO2 24.2 mmol/L (20.0-31.0); Calcium 9.4 mg/dL (8.3-10.6); Chloride 108 mmol/L (98-107); Glucose 102 mg/dL (74-106); Potassium 4.0 mmol/L (3.5-5.1); Sodium 142 mmol/L (136-145); Total Protein 7.5 g/dL (5.7-8.2)
[2025-04-02 11:49] LABS: Glucose Negative (Negative)
[2025-04-02] MEDS: Clopidogrel 300 MG TAB PO (11:50)
[2025-04-02] MEDS: Aspirin 325 MG TAB PO (11:50)
[2025-04-02 11:55] LABS: C & S Indicated? No; RBC 0-2 HPF (0-2); WBC Negative HPF (0-5)
[2025-04-02 12:16] LABS: Troponin I 3 ng/L (<35)
--- NOTE | 2025-04-02 14:00 | W.PC.ACHO ---
Registration Status: REG ER Primary Language: Preferred Language: Tajik ED Information & Data Chief Complaint CVA/TIA 04/02/25 10:47 Chief Complaint CVA/TIA 04/02/25 10:36 Triage Note Right leg foot drag, dizzy 04/02/25 10:36 spells, speech slurred. Occurred yesterday and went away, symptoms reoccurred this morning at 0800. Not on blood thinners, no recent head strikes or trauma. No hx of afib or blood clotting . A/OX4. Hx of HTN. Denies PENA. Right leg motor dysfunction due to dragging leg. Medical / Surgical History (Last Updated 09/08/23 @ 18:35 by Saúl Miller NP) First degree burn Shoulder pain, left Pulmonary nodules (11/10/16) HTN (hypertension) Neoplasm of female breast (Last Reviewed 01/28/23 @ 13:21 by Saúl Miller NP) History of hysterectomy HYSTERECTOMY Colonoscopy - IV Sedation (04/09/16) Most Recent Vital Signs Temperature 36.7 C 04/02/25 10:36 Temperature Source Oral 04/02/25 10:36 Pulse 66 04/02/25 12:31 Pulse 71 04/02/25 12:31 Respiratory Rate 20 04/02/25 12:31 Respiratory Effort Non-Labored 04/02/25 10:50 Blood Pressure 181/72 H 04/02/25 12:31 Blood Pressure Mean 103 04/02/25 12:31 Blood Pressure Position Supine 04/02/25 10:36 Pulse Oximetry 99 04/02/25 11:50 Oxygen Delivery Method Room Air 04/02/25 10:36 Oxygen Flow Rate 0 04/02/25 10:36 Pain Level 0 04/02/25 10:36 Allergies meperidine (From Demerol) Adverse Reaction (Severe, Verified 04/02/25 10:52) severe nausea and vomiting Active Medications Generic Name Dose Route Start Last Admin Trade Name Betsey PRN Reason Stop Dose Admin Iohexol 100 ml 04/02/25 11:00 04/02/25 10:53 Omnipaque 350 Mg/Ml 100 Ml Btl IJ 05/02/25 23:59 70 ml DIRECTED PETER Administration Sodium Chloride 50 ml 04/02/25 11:00 04/02/25 10:53 Normal Saline - Diluent 50 Ml Vial IJ 50 ml DIRECTED PETER Administration IV IV Catheter Type [Left Saline Lock Antecubital] IV Catheter Gauge [Left 18 Antecubital] Diet Orders Category Date Time Status DIET [Heart Healthy Eating] [DIET] Nutrition 04/02/25 Lunch Active Diagnostics 04/02/25 04/02/25 04/02/25 Range/Units 13:49 11:55 11:45 WBC (4.4-10.8) 10^3/uL RBC (3.93-5.22) 10^6/uL Hgb (11.2-15.7) g/dL Hct (36.0-46.0) % MCV (80-95) fL MCH (27.0-33.0) pg MCHC (32.0-36.0) % RDW (11.7-14.6) % Plt Count (130-400) 10^3/uL MPV (8.0-11.0) fL Immature Gran % % Neutrophils % % Lymphocytes % % Monocytes % % Eosinophils % % Basophils % % Nucleated RBC % (0.0-0.3) % Absolute Neutrophils (1.2-6.7) 10^3/uL Absolute Lymphocytes (1.2-3.4) 10^3/uL Absolute Monocytes (0.1-0.8) 10^3/uL Absolute Eosinophils (0.0-0.7) 10^3/uL Absolute Basophils (0.0-0.2) 10^3/uL PT (9.1-11.1) sec INR (0.9-1.1) APTT (20.6-30.2) sec Sodium (136-145) mmol/L Potassium (3.5-5.1) mmol/L Chloride (98-107) mmol/L Carbon Dioxide (20.0-31.0) mmol/L Anion Gap (3-11) mmol/L BUN (9-23) mg/dL Creatinine (0.55-1.02) mg/dL Est GFR (CKD-EPI 2020) (mL/min/1.73m2) Glucose (74-106) mg/dL Calcium (8.3-10.6) mg/dL Magnesium (1.6-2.6) mg/dL Total Bilirubin (0.2-1.2) mg/dL AST (<34) U/L ALT (10-49) U/L Alkaline Phosphatase (46-116) U/L Troponin I Pending 3 (<35) ng/L Total Protein (5.7-8.2) g/dL Albumin (3.2-5.0) g/dL Urine Color Yellow (Yellow) Urine Clarity Clear (Clear) Urine pH 7.0 (5-8) Ur Specific [place] 1.010 (1.005-1.025) Urine Protein Negative (Neg-Trace) mg/dL Urine Ketones Negative (Negative) mg/dL Urine Blood Trace-intact H (Negative) Urine Nitrite Negative (Negative) Urine Bilirubin Negative (Negative) Urine Urobilinogen 0.2 (Up to 0.2) mg/dL Ur Leukocyte Esterase Negative (Negative) Urine RBC 0-2 (0-2) HPF Urine WBC Negative (0-5) HPF Ur Epithelial Cells Rare (Negative) HPF Urine Crystals Negative (Negative) HPF Urine Bacteria Negative (Negative) HPF Urine Casts Negative (Negative) LPF Urine Mucus Negative (Negative) Ur Culture Indicated? No Urine Glucose Negative (Negative) mg/dL 04/02/25 Range/Units 10:44 WBC 8.60 (4.4-10.8) 10^3/uL RBC 4.83 (3.93-5.22) 10^6/uL Hgb 14.2 (11.2-15.7) g/dL Hct 42.9 (36.0-46.0) % MCV 89 (80-95) fL MCH 29.4 (27.0-33.0) pg MCHC 33.1 (32.0-36.0) % RDW 14.2 (11.7-14.6) % Plt Count 218 (130-400) 10^3/uL MPV 11.0 (8.0-11.0) fL Immature Gran % 0.3 % Neutrophils % 70.0 % Lymphocytes % 17.8 % Monocytes % 6.0 % Eosinophils % 5.0 % Basophils % 0.9 % Nucleated RBC % 0.0 (0.0-0.3) % Absolute Neutrophils 6.01 (1.2-6.7) 10^3/uL Absolute Lymphocytes 1.53 (1.2-3.4) 10^3/uL Absolute Monocytes 0.52 (0.1-0.8) 10^3/uL Absolute Eosinophils 0.43 (0.0-0.7) 10^3/uL Absolute Basophils 0.08 (0.0-0.2) 10^3/uL PT 9.6 (9.1-11.1) sec INR 1.0 (0.9-1.1) APTT 25.8 (20.6-30.2) sec Sodium 142 (136-145) mmol/L Potassium 4.0 (3.5-5.1) mmol/L Chloride 108 H (98-107) mmol/L Carbon Dioxide 24.2 (20.0-31.0) mmol/L Anion Gap 9.8 (3-11) mmol/L BUN 21 (9-23) mg/dL Creatinine 1.07 H (0.55-1.02) mg/dL Est GFR (CKD-EPI 2020) 50.22 (mL/min/1.73m2) Glucose 102 (74-106) mg/dL Calcium 9.4 (8.3-10.6) mg/dL Magnesium 2.1 (1.6-2.6) mg/dL Total Bilirubin 0.9 (0.2-1.2) mg/dL AST 28 (<34) U/L ALT 27 (10-49) U/L Alkaline Phosphatase 103 (46-116) U/L Troponin I 4 (<35) ng/L Total Protein 7.5 (5.7-8.2) g/dL Albumin 4.4 (3.2-5.0) g/dL Urine Color (Yellow) Urine Clarity (Clear) Urine pH (5-8) Ur Specific [place] (1.005-1.025) Urine Protein (Neg-Trace) mg/dL Urine Ketones (Negative) mg/dL Urine Blood (Negative) Urine Nitrite (Negative) Urine Bilirubin (Negative) Urine Urobilinogen (Up to 0.2) mg/dL Ur Leukocyte Esterase (Negative) Urine RBC (0-2) HPF Urine WBC (0-5) HPF Ur Epithelial Cells (Negative) HPF Urine Crystals (Negative) HPF Urine Bacteria (Negative) HPF Urine Casts (Negative) LPF Urine Mucus (Negative) Ur Culture Indicated? Urine Glucose (Negative) mg/dL [id number] Documentation Fingerstick Glucose Start: 04/02/25 10:45 Freq: Status: Active Protocol: Activity Type Activity Date Activity User E-sign Co-sign Detail Recorded Client Recorded Date Recorded By Document 04/02/25 10:44 SALOME DAJOEL(3) [id number] 04/02/25 10:45 SALOME DADEEPON(4) Intake and Output - 24 Hour Total 04/02/25 10:33 thru 04/02/25 10:36 Weight 34.654 kg Falls Risk Assessment History of Falls No History 04/02/25 10:48 Contributing Factors Unstable,Impairments 04/02/25 10:48 Ambulatory Aids Independent 04/02/25 10:48 Tubes/Lines None 04/02/25 10:48 Gait Evaluation W/no contributing factors 04/02/25 10:48 Cognition Cognitive impairment 04/02/25 10:48 Fall Total Score 31 04/02/25 10:48 Level of Risk Moderate Risk 04/02/25 10:48 Attestation Statement: By documenting the first initial, last name, and credentials of the reporting nurse below, both parties acknowledge that all relevant information regarding the patient handoff has been communicated, and that all questions have been addressed to ensure continuity and safety of care. Additional Patient Information/Comments: pt alert and oriented x 3 transfered up from ER via stretcher pt on be placed on telemetry Report Received From: [facility] ED at 1:50pm
[2025-04-02 14:24] LABS: Troponin I 5 ng/L (<35)
--- NOTE | 2025-04-02 16:59 | ED.GENADUL_ITS ---
Discharge Plan Disposition Patient Disposition: Admit to [facility] Condition: Serious Discharge Details Clinical Impression: Acute CVA (cerebrovascular accident) Admit Date/Time: 04/02/25 11:44 Admit Provider: Andrés Salinas Attending Provider: Andrés Salinas Primary Care Provider: Saúl Ro ED Provider: Urvashi Beard Discharge Data Discharge Date/Time-TO BE ENTERED AT DEPARTURE: 04/02/25 14:13 HPI General Date/Time Provider Initiated Documentation: 04/02/25 10:46 . HPI Narrative: This 74-year-old female with history of hypertension breast cancer hyperlipidemia presents with intermittent slurred speech, right arm and leg weakness since last evening. States that symptoms resolved last evening when she awoke with the symptoms at 8:00 this morning. She denies prior history of CVA or known dysrhythmia. She states her symptoms have improved since she awoke with them at 8:00 this morning. She was unable to walk and her speech was very slurred this morning per patient. Did recently start on amitriptyline denies any association with taking this medication and symptom onset. Denies any falls or injuries denies history of coagulopathy. Related Data Home Medications ?Medication ?Instructions ?Recorded ?Confirmed triamcinolone acetonide 0.1 % 1 applic topical BID noemi h/eczema 03/29/21 04/02/25 topical cream #15 grams amitriptyline 10 mg tablet 10 mg PO QHS #90 tabs 03/2104/02/25 amlodipine 5 mg tablet See Rx Instructions .Route 1 05/22/24 04/02/25 .COMPLEX #180 tabs lisinopril 20 mg tablet 20 mg PO DAILY #90 tabs 01/0504/02/25 Previous Rx's ?Medication ?Instructions ?Recorded triamcinolone acetonide 0.1 % 1 applic topical BID noemi h/eczema 03/29/21 topical cream #15 grams amitriptyline 10 mg tablet 10 mg PO QHS #90 tabs 03/21 amlodipine 5 mg tablet See Rx Instructions .Route 1 05/22/24 .COMPLEX #180 tabs lisinopril 20 mg tablet 20 mg PO DAILY #90 tabs 01/05 Allergies Allergy/AdvReac Type Severity Reaction Status Date / Time meperidine (From Demerol) AdvReac Severe severe Verified 04/02/25 10:52 nausea and vomiting General Stated Complaint: CVA/TIA FREDY: 2 Exam Narrative Exam Narrative: Alert and oriented 74-year-old female presenting with flattening to the nasol abial folds right sided mild facial droop, oropharynx patent uvula midline, 4 out of 5 strength to right hand 4-5 strength to with dorsiflexion of right foot, sensation intact, negative ogkulw-[id number]-lvuntn, negative heel rhoades, negative pronator drift, speech is mildly slurred, right leg with drift Course Vital Signs Vital signs: Vital Signs Temperature 36.7 C 04/02/25 10:36 Pulse 90 04/02/25 10:36 Respiratory Rate 20 04/02/25 10:36 Blood Pressure 214/82 H 04/02/25 10:36 Pulse Oximetry 99 04/02/25 10:36 Temperature 36.5 C 04/02/25 14:34 Temperature Source Temporal Artery Scan 04/02/25 14:13 Pulse 70 04/02/25 14:34 Pulse Rhythm Regular 04/02/25 14:34 Pulse 71 04/02/25 12:31 Respiratory Rate 18 04/02/25 14:34 Respiratory Effort Normal 04/02/25 14:34 Respiratory Depth Normal 04/02/25 14:34 Respiratory Pattern Normal 04/02/25 14:34 Blood Pressure 183/65 H 04/02/25 14:34 Blood Pressure Mean 104 04/02/25 14:13 Blood Pressure Position Supine 04/02/25 10:36 Pulse Oximetry 94 04/02/25 14:34 Oxygen Delivery Method Room Air 04/02/25 14:34 Oxygen Flow Rate 0 04/02/25 14:34 Pain Level 0 04/02/25 14:34 Lab/Test Results Lab/Test Results: Laboratory Tests Range/Units 04/02/25 10:44 WBC (4.4-10.8) 10^3/uL 8.60 RBC (3.93-5.22) 10^6/uL 4.83 Hgb (11.2-15.7) g/dL 14.2 Hct (36.0-46.0) % 42.9 MCV (80-95) fL 89 MCH (27.0-33.0) pg 29.4 MCHC (32.0-36.0) % 33.1 RDW (11.7-14.6) % 14.2 Plt Count (130-400) 10^3/uL 218 MPV (8.0-11.0) fL 11.0 Immature Gran % % 0.3 Neutrophils % % 70.0 Lymphocytes % % 17.8 Monocytes % % 6.0 Eosinophils % % 5.0 Basophils % % 0.9 Nucleated RBC % (0.0-0.3) % 0.0 Absolute Neutrophils (1.2-6.7) 10^3/uL 6.01 Absolute Lymphocytes (1.2-3.4) 10^3/uL 1.53 Absolute Monocytes (0.1-0.8) 10^3/uL 0.52 Absolute Eosinophils (0.0-0.7) 10^3/uL 0.43 Absolute Basophils (0.0-0.2) 10^3/uL 0.08 PT (9.1-11.1) sec 9.6 INR (0.9-1.1) 1.0 APTT (20.6-30.2) sec 25.8 Sodium (136-145) mmol/L 142 Potassium (3.5-5.1) mmol/L 4.0 Chloride (98-107) mmol/L 108 H Carbon Dioxide (20.0-31.0) mmol/L 24.2 Anion Gap (3-11) mmol/L 9.8 BUN (9-23) mg/dL 21 Creatinine (0.55-1.02) mg/dL 1.07 H Est GFR (CKD-EPI 2020) (mL/min/1.73m2) 50.22 Glucose (74-106) mg/dL 102 Calcium (8.3-10.6) mg/dL 9.4 Magnesium (1.6-2.6) mg/dL 2.1 Total Bilirubin (0.2-1.2) mg/dL 0.9 AST (<34) U/L 28 ALT (10-49) U/L 27 Alkaline Phosphatase (46-116) U/L 103 Troponin I (<35) ng/L 4 Total Protein (5.7-8.2) g/dL 7.5 Albumin (3.2-5.0) g/dL 4.4 Medical Decision Making Results: CTA head and neck did not show evidence of acute abnormality, chest x- ray per radiology interpretation my review does not show acute abnormality, CBC, CMP, troponin are within normal limits, urinalysis does not show acute abnormality, EKG does not show dysrhythmia or ischemia Assessment and plan: Patient with likely acute stroke to basal ganglia on left, but not visualized on CTA. diagnostic labs do not show evidence of acute abnormality. Patient's symptoms have largely improved since onset, stroke score of 5. As symptoms have largely improved and patient's last known well was last evening, she is out of the window for TNK and not a TNK candidate after discussion with the neurologist- Dr Rene. Neurologist recommends administration of 325 of aspirin, 300 of Plavix, echocardiogram and telemetry monitoring/MRI. Blood pressure systolic 100-220 permissive hypertension. At this time patient is agreeable to hospitalization. Mini swallow study was performed prior to administration of Plavix and aspirin and patient tolerated this well, low risk of aspiration with improved speech. Case discussed with Dr. Salinas, admitting hospitalist. Monitored frequent neuroexams, however patient's neurological status has improved throughout her stay.. 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 LOUIS; CT stopped- no changes in nodule HTN (hypertension) Neoplasm of female breast Surgical History History of hysterectomy HYSTERECTOMY has cervix and ovaries Colonoscopy - IV Sedation (04/09/16) Family History (Updated 04/04/24 @ 10:25 by Cristina Singer) Mother , age 60's Leukemia Depression Father , age 42 Alcohol abuse Sister , age 67 Liver cancer Sister Alcohol abuse Brother , age 60 Leukemia Alcohol use disorder Maternal Grandfather Heart disease Paternal Grandfather No problems noted. Maternal Grandmother No problems noted. Paternal Grandmother No problems noted. Daughter No problems noted. Daughter No problems noted. Social History (Updated 04/04/24 @ 10:24 by Cristina Singer) Smoking/Tobacco Use Status: Never Tobacco: How many years used: 0 Second Hand Exposure: Yes Smoking risk assessment performed?: Yes Alcohol Intake: never Drug use: Never Substance use type: does not use Adopted: No Caregiver/Support person: No Household members: spouse and children Housing: house Number of Children: 2 number of grandchildren: 2 Communication Needs: None Education Level: college Details: 2yr college Do you need help understanding health information?: Rarely current occupation: [employer] Pets and animals: Yes Pets and animals: cat(s) and dog(s) Sexually active: No Do you think of yourself as: straight/heterosexual Current gender identity: female What is your relationship status?: How often do you talk on the phone with friends or family?: twice per week How often do you get together with friends or relatives?: once per week How often do you attend taoist or confucianist services?: decline to answer Do you belong to any clubs or organized social groups?: decline to answer Panel score (0-1 are the most socially isolated patients): 2 What type of physical activity do you participate in: walking Duration: 30-45 minutes/day Frequency: 1-2 times per week Marlena/Zoroastrian: Sikhism Special marlena needs: No Seatbelt use: always Helmet use: Yes Helmet use: always Drive intox or ride w/intox limb driver: No Firearms in home: Yes Firearms unloaded and locked: Yes Do you feel safe at home: Yes Do you feel safe in your relationship?: Yes Victim of physical abuse: No Victim of emotional abuse: No Victim of sexual abuse: No
--- NOTE | 2025-04-02 19:10 | HPE_ITS ---
Date of service: 04/02/25 Time of Service: 19:10 Assessment and Plan Assessment and plan (1) Dysphasia: Status: Acute Assessment and plan: CVA versus TIA. Patient is improved in regards to her symptomology. MRI and echocardiogram have been ordered. Physical and speech therapy have also been ordered. Will allow for permissive hypertension for the first 24 to 36 hours. Will add glucometers as her blood sugar should be between 140 and 180. Patient has been given Plavix and aspirin. I will add Lovenox for DVT prophylaxis. Does not appear to be heparin ordered with a bubble study but will discuss with calling in the a.m. as the patient age might preclude the need for a bubble study. (2) Essential hypertension: Status: Acute Assessment and plan: Patient is on home lisinopril. Will hold for now. She will need optimization in the outpatient setting. (3) Hyperlipidemia: Status: Acute Assessment and plan: Patient denied history of dyslipidemia but she is on atorvastatin. Will add lipid panel. It is possible that the statin was started on this admission. Actually on reviewing her home meds statin is new. (4) DCIS (ductal carcinoma in situ): Status: Acute Assessment and plan: Noted (5) Insomnia: Status: Acute Assessment and plan: Patient recently started on amitriptyline for insomnia. Will defer management to the outpatient setting. (6) Systolic murmur: Status: Acute Assessment and plan: await echo results History of Present Illness History of Present Illness Chief Complaint: slurred speech Narrative: This is a 74-year-old female with a known history of breast cancer, insomnia, hypertension who woke up this morning with expressive dysphagia and right lower extremity weakness. Patient came into the ED for further evaluation and treatment. While she was in the ED she did get a workup including radiographs, lab work, CTA of the head, as well as an EKG. She also did get a chest x-ray. Her CTA and chest x-ray were essentially benign. Her lab work was essentially benign with exception mild hematuria. Patient denies any history of dyslipidemia. She had recently been started on Elavil for insomnia. Patient is a full code. Upon my exam there is ED she continued to have a fair amount of word finding difficulty. Review of Systems All systems reviewed & are unremarkable except as noted in HPI and below PFSH All Active Problems (Updated 04/02/25 @ 19:27 by Abel Wade MD) Systolic murmur (Acute) Dysphasia (Acute) Acute CVA (cerebrovascular accident) (Acute) Hyperglycemia (Acute) Weight gain (Acute) Insomnia (Acute) Herpes zoster (Acute ~03/2021) CKD stage G3a/A1, GFR 45-59 and albumin creatinine ratio <30 mg/g (Acute) Hyperlipidemia (Acute) Urge incontinence (Acute) Nocturia (Acute) Dermatitis, seborrheic (Chronic) right ear 2-3 x year Malignant neoplasm of unspecified site of left female breast (Acute 12/18/15) [facility] Essential hypertension (Acute) DCIS (ductal carcinoma in situ) (Acute) 08/23/15; LEFT BREAST ([facility]) Adenomatous colon polyp (Acute 03/12/04) colo 2016 no polyps, rec 10 year screen Medical History (Updated 04/02/25 @ 19:27 by Abel Wade MD) First degree burn Shoulder pain, left Recurrent dislocation of left shoulder; S/P repair Pulmonary nodules (11/10/16) [facility]; [place]; CT stopped- no changes in nodule HTN (hypertension) Neoplasm of female breast Surgical History History of hysterectomy HYSTERECTOMY has cervix and ovaries Colonoscopy - IV Sedation (04/09/16) Family History (Updated 04/04/24 @ 10:25 by Cristina Singer) Mother , age 60's Leukemia Depression Father , age 42 Alcohol abuse Sister , age 67 Liver cancer Sister Alcohol abuse Brother , age 60 Leukemia Alcohol use disorder Maternal Grandfather Heart disease Paternal Grandfather No problems noted. Maternal Grandmother No problems noted. Paternal Grandmother No problems noted. Daughter No problems noted. Daughter No problems noted. Social History (Updated 04/04/24 @ 10:24 by Cristina Singer) Smoking/Tobacco Use Status: Never Tobacco: How many years used: 0 Second Hand Exposure: Yes Smoking risk assessment performed?: Yes Alcohol Intake: never Drug use: Never Substance use type: does not use Adopted: No Caregiver/Support person: No Household members: spouse and children Housing: house Number of Children: 2 number of grandchildren: 2 Communication Needs: None Education Level: college Details: 2yr college Do you need help understanding health information?: Rarely current occupation: [employer] Pets and animals: Yes Pets and animals: cat(s) and dog(s) Sexually active: No Do you think of yourself as: straight/heterosexual Current gender identity: female What is your relationship status?: How often do you talk on the phone with friends or family?: twice per week How often do you get together with friends or relatives?: once per week How often do you attend rastafarian or mormon services?: decline to answer Do you belong to any clubs or organized social groups?: decline to answer Panel score (0-1 are the most socially isolated patients): 2 What type of physical activity do you participate in: walking Duration: 30-45 minutes/day Frequency: 1-2 times per week Marlena/Religious: Baptist Special marlena needs: No Seatbelt use: always Helmet use: Yes Helmet use: always Drive intox or ride w/intox 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: No Firearms in home: Yes Firearms unloaded and locked: Yes Do you feel safe at home: Yes Do you feel safe in your relationship?: Yes Victim of physical abuse: No Victim of emotional abuse: No Victim of sexual abuse: No Meds Allergies and Home Medications Allergies Allergy/AdvReac Type Severity Reaction Status Date / Time meperidine (From Demerol) AdvReac Severe severe Verified 04/02/25 10:52 nausea and vomiting Home Medications ?Medication ?Instructions ?Recorded ?Confirmed ?Type triamcinolone acetonide 0.1 % 1 applic topical BID noemi h/eczema 03/29/21 04/02/25 Rx topical cream #15 grams amitriptyline 10 mg tablet 10 mg PO QHS #90 tabs 03/2104/02/25 Rx amlodipine 5 mg tablet See Rx Instructions .Route 1 05/22/24 04/02/25 Rx .COMPLEX #180 tabs lisinopril 20 mg tablet 20 mg PO DAILY #90 tabs 01/0504/02/25 Rx Exam Narrative Exam Narrative: HEENT normal cephalic atraumatic she does have a right facial droop she can raise her eyebrows symmetrically. Neck no lymphadenopathy or JVD Cardiovascular 2 out of 6 systolic ejection murmur regular rate and rhythm Lungs clear to auscultation bilaterally with good air exchange Abdomen soft nontender nondistended bowel sounds active Extremity 4-5 strength in right upper and right lower extremity left lower extremity 5 out of 5 Neurologic cranial nerves II through XII intact as tested with the exception the above-mentioned facial droop psych alert and oriented x 3 Results Labs 04/02/25 10:44 04/02/25 10:44 Labs: Laboratory Results - last 24 hr 04/02/25 04/02/25 04/02/25 10:44 11:45 11:55 WBC 8.60 RBC 4.83 Hgb 14.2 Hct 42.9 MCV 89 MCH 29.4 MCHC 33.1 RDW 14.2 Plt Count 218 MPV 11.0 Immature Gran % 0.3 Neutrophils % 70.0 Lymphocytes % 17.8 Monocytes % 6.0 Eosinophils % 5.0 Basophils % 0.9 Nucleated RBC % 0.0 Absolute Neutrophils 6.01 Absolute Lymphocytes 1.53 Absolute Monocytes 0.52 Absolute Eosinophils 0.43 Absolute Basophils 0.08 PT 9.6 INR 1.0 APTT 25.8 Sodium 142 Potassium 4.0 Chloride 108 H Carbon Dioxide 24.2 Anion Gap 9.8 BUN 21 Creatinine 1.07 H Est GFR (CKD-EPI 2020) 50.22 Glucose 102 Calcium 9.4 Magnesium 2.1 Total Bilirubin 0.9 AST 28 ALT 27 Alkaline Phosphatase 103 Troponin I 4 3 Total Protein 7.5 Albumin 4.4 Urine Color Yellow Urine Clarity Clear Urine pH 7.0 Ur Specific Vanlue 1.010 Urine Protein Negative Urine Ketones Negative Urine Blood Trace-intact H Urine Nitrite Negative Urine Bilirubin Negative Urine Urobilinogen 0.2 Ur Leukocyte Esterase Negative Urine RBC 0-2 Urine WBC Negative Ur Epithelial Cells Rare Urine Crystals Negative Urine Bacteria Negative Urine Casts Negative Urine Mucus Negative Ur Culture Indicated? No Urine Glucose Negative 04/02/25 13:56 WBC RBC Hgb Hct MCV MCH MCHC RDW Plt Count MPV Immature Gran % Neutrophils % Lymphocytes % Monocytes % Eosinophils % Basophils % Nucleated RBC % Absolute Neutrophils Absolute Lymphocytes Absolute Monocytes Absolute Eosinophils Absolute Basophils PT INR APTT Sodium Potassium Chloride Carbon Dioxide Anion Gap BUN Creatinine Est GFR (CKD-EPI 2020) Glucose Calcium Magnesium Total Bilirubin AST ALT Alkaline Phosphatase Troponin I 5 Total Protein Albumin Urine Color Urine Clarity Urine pH Ur Specific Vanlue Urine Protein Urine Ketones Urine Blood Urine Nitrite Urine Bilirubin Urine Urobilinogen Ur Leukocyte Esterase Urine RBC Urine WBC Ur Epithelial Cells Urine Crystals Urine Bacteria Urine Casts Urine Mucus Ur Culture Indicated? Urine Glucose Last Vital Signs Temp 36.5 C 04/02/25 14:34 Pulse 70 04/02/25 14:34 Resp 18 04/02/25 14:34 BP 183/65 H 04/02/25 14:34 Pulse Ox 94 04/02/25 14:34 VTE Prohylaxis Risk Level: Moderate/High Risk Contraindications: None Prophylaxis: Pharmacologic Time Spent Time spent with Patient: 55-74 minutes Time was spent: preparing to see the patient(eg.review tests), obtaining and/or reviewing separately otained hiistory, ordering medications,tests, procedures, referring, communicating with other health healthcare sales representative, indepentently interpreting results, counseling the patient and care coordination
[2025-04-02] MEDS: Normal Saline Flush 10 ML SYR IVP (20:18)
[2025-04-02] MEDS: Atorvastatin 40 MG TAB 80 MG PO (20:18)
[2025-04-02] MEDS: Acetaminophen 500 MG TAB PO (21:53)
[2025-04-02] MEDS: Amitriptyline 10 MG TAB PO (22:12)
[2025-04-02] MEDS: LORazepam 1 MG TAB 2 MG PO (23:13)
--- NOTE | 2025-04-03 07:00 | DI.MRI_ITS ---
Exam(s) MR BRAIN WO EXAM: MR BRAIN WO CLINICAL HISTORY: cva TECHNIQUE: Multiplanar multisequence MRI of the brain was performed. COMPARISON: CT CT BRAIN NECK CTA from 04/02/2025 FINDINGS: VENTRICLES AND EXTRA AXIAL SPACES: Normal in size and morphology for the patient's age. MIDLINE SHIFT: None. CEREBRAL PARENCHYMA: There is an area of restricted diffusion in the medial aspect of the left ricks radiata consistent with a acute/subacute infarct. There is an old left MCA distribution infarct. There are several areas of hyperintense signal seen in the white matter on the FLAIR and T2 weighted images consistent with chronic microvascular ischemic disease. HEMORRHAGE: There is evidence of old hemorrhage in the bed of the old infarct. BRAINSTEM/CEREBELLUM: Normal. CALVARIUM: Normal. VISUALIZED PARANASAL SINUSES/MASTOIDS:Clear. STOCKBRIDGE OF TRIPP: Normal flow void. PITUITARY GLAND: Unremarkable. OTHER FINDINGS: None. IMPRESSION: Acute infarct seen in the medial aspect of the left ricks radiata. DATA REPOSITORY:
[2025-04-03 07:13] VITALS: BP 153/72; PULSE 83; RESP 18; TEMP 36.6; O2SAT 99
[2025-04-03 07:20] LABS: Hemoglobin A1C 5.2 % (<5.7)
[2025-04-03 07:23] LABS: Anion Gap 10.8 mmol/L (3-11); BUN 17 mg/dL (9-23); CO2 23.2 mmol/L (20.0-31.0); Calcium 9.5 mg/dL (8.3-10.6); Chloride 110 mmol/L (98-107); Cholesterol 187 mg/dL (<200); Glucose 101 mg/dL (74-106); HDL Cholesterol 60 mg/dL (>or=50); Potassium 3.7 mmol/L (3.5-5.1); Sodium 144 mmol/L (136-145); TSH 8.45 uIU/mL (0.55-4.78)
[2025-04-03] MEDS: LORazepam 1 MG TAB 2 MG PO (07:52)
--- NOTE | 2025-04-03 08:54 | PDOC.CMIN ---
Care Management Initial Assmt Initial Assessment Reason for Hospitalization: CVA Functional Status/Living Situation Patient Presentation: Angela was lying in bed and could be heard sobbing from the hallway when CM entered the room. Her aSnju was standing at the bedside and explains that Angela's loss function is deeply contributing to the emotions she is feeling. Talking about this and validating the patients concerns, seemed to offer some comfort as her sobbing subsided and she began to communicate with more tolerance of the extra time she needed to pronounce words. Angela lives in [place] and has been to her Sanju for 60 years. They have 2 daughters, Angie and Dayan, both are supportive and live locally. 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 She is agreeable to PT's recommendation for Acute STR and referrals will be sent to [facility] when supporting PT documentation becomes available. Town of Residence: [place] Resides with: Spouse (Sanju) Significant Other/Family: Local Natural Supports: and daughters Angie and Dyaan Employment Status: Employed Instrumental Activities of Daily Living (ADLs): Independent Medications Medication Management: No Issues/Barriers identified Advance Directives Advance Directives: Do you have an Advance Directive: N 03/19/23, 13:34 AD On File at [facility]: N 03/19/23, 13:34 Date Asked 04/02/25 04/02/25, 10:51 AD Date Reviewed COLST On File at [facility] COLST Date Scanned Code Status Resuscitation Status Full Code Insurance Coverage/Financial Issues Insurance: /[facility] - [id number] Care Team Visit Care Team Role Provider Type Saúl Miller NP Primary Care Provider NURSE PRACTITIONER Susana Dueñas, NICKER AND BREAKER Other Providers SPEECH LANGUAGE PATHOLOGIST Nyasia French, NICKER AND BREAKER Other Providers SPEECH LANGUAGE PATHOLOGIST Porsha Gutierrez Other Providers SPEECH LANGUAGE PATHOLOGIST Lynnette Guan, NICKER AND BREAKER Other Providers SPEECH LANGUAGE PATHOLOGIST Barbara Perez, NICKER AND BREAKER Other Providers SPEECH LANGUAGE PATHOLOGIST Elie Franz Other Providers OTHER BECKI Shearer Emergency Provider PHYSICIANS ASSISTANT Andrés Salinas Admit Provider [facility] STAFF PHYSICIAN Attending Provider Discharge Potential Discharge Needs: Other (Acute rehab) Anticipated Barriers to Discharge: Medical Status Patient/Family Education Needs: Review discharge instructions, discuss Ask Me Three Transportation: Other (Dependent on dispo. ) Plan: Angela requires addition medical work up and monitoring post CVA. PT recommends Acute Inpatient Rehab for CVA Recovery. Referrals will be sent to [facility]. CM will follow. Social Determinants of Health Screening Social Determinants of health last assessed in clinic: 04/03/25 Will the Patient Participate in the Screening?: Yes Do you worry about having a steady place to live?: no Problems where you live: no known problems In the past 12 months, have you had to go without electric, gas, oil or water in your home?: no 1. Within the past 12 months, we worried whether our food would run out before we got money to buy more.: Never true 2. Within the past 12 months, the food we bought just didn't last and we didn't have money to get more.: Never true Has lack of transportation kept you from medical appointments or from doing things needed for daily living?: no Has anyone in your life made you feel unsafe or unsupported?: no How hard is it for you to pay for the very basics like food, housing, medical care, and heating? Would you say it is:: Not hard at all Do you want help finding or keeping work or a job?: I do not need or want help If for any reason you need help with day-to-day activities such as bathing, preparing meals, shopping, managing finances, etc., do you get the help you need?: I don?t need any help How often do you feel lonely or isolated from those around you?: Never Do you speak a language other than [place] Leonean at home?: No Does the patient want assistance with any of the above?: No PFSH All Active Problems (Updated 04/03/25 @ 10:46 by Anila Vee APRN) Acute stroke due to ischemia (Acute) Systolic murmur (Acute) Dysphasia (Acute) Acute CVA (cerebrovascular accident) (Acute) Hyperglycemia (Acute) Weight gain (Acute) Insomnia (Acute) Herpes zoster (Acute ~03/2021) CKD stage G3a/A1, GFR 45-59 and albumin creatinine ratio <30 mg/g (Acute) Hyperlipidemia (Acute) Urge incontinence (Acute) Nocturia (Acute) Dermatitis, seborrheic (Chronic) right ear 2-3 x year Malignant neoplasm of unspecified site of left female breast (Acute 12/18/15) [facility] Essential hypertension (Acute) DCIS (ductal carcinoma in situ) (Acute) 08/23/15; LEFT BREAST ([facility]) Adenomatous colon polyp (Acute 03/12/04) colo 2016 no polyps, rec 10 year screen Medical History (Updated 04/03/25 @ 10:46 by Anila Vee APRN) First degree burn Shoulder pain, left Recurrent dislocation of left shoulder; S/P repair Pulmonary nodules (11/10/16) [facility]; [facility]; CT stopped- no changes in nodule HTN (hypertension) Neoplasm of female breast Surgical History History of hysterectomy HYSTERECTOMY has cervix and ovaries Colonoscopy - IV Sedation (04/09/16) Family History (Updated 04/04/24 @ 10:25 by Cristina Singer) Mother , age 60's Leukemia Depression Father , age 42 Alcohol abuse Sister , age 67 Liver cancer Sister Alcohol abuse Brother , age 60 Leukemia Alcohol use disorder Maternal Grandfather Heart disease Paternal Grandfather No problems noted. Maternal Grandmother No problems noted. Paternal Grandmother No problems noted. Daughter No problems noted. Daughter No problems noted. Social History (Updated 04/04/24 @ 10:24 by Cristina Singer) Smoking/Tobacco Use Status: Never Tobacco: How many years used: 0 Second Hand Exposure: Yes Smoking risk assessment performed?: Yes Alcohol Intake: never Drug use: Never Substance use type: does not use Adopted: No Caregiver/Support person: No Household members: spouse and children Housing: house Number of Children: 2 number of grandchildren: 2 Communication Needs: None Education Level: college Details: 2yr college Do you need help understanding health information?: Rarely current occupation: [employer] Pets and animals: Yes Pets and animals: cat(s) and dog(s) Sexually active: No Do you think of yourself as: straight/heterosexual Current gender identity: female What is your relationship status?: How often do you talk on the phone with friends or family?: twice per week How often do you get together with friends or relatives?: once per week How often do you attend temple or presybeterian services?: decline to answer Do you belong to any clubs or organized social groups?: decline to answer Panel score (0-1 are the most socially isolated patients): 2 What type of physical activity do you participate in: walking Duration: 30-45 minutes/day Frequency: 1-2 times per week Marlena/Rastafarian: Jehovah'S Witness Special marlena needs: No Seatbelt use: always Helmet use: Yes Helmet use: always Drive 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
[2025-04-03] MEDS: Enoxaparin 40 MG/0.4 ML SYR SC (09:25)
[2025-04-03] MEDS: amLODIPine 5 MG TAB 10 MG PO (09:25)
[2025-04-03] MEDS: Clopidogrel 75 MG TAB PO (09:26)
[2025-04-03] MEDS: Aspirin 81 MG CHEW PO (09:26)
[2025-04-03] MEDS: Triamcinolone 0.1% CR 15 GM TUBE TP ×2 (09:42→19:48)
--- NOTE | 2025-04-03 10:21 | PT.INIE ---
PT Notes Visit Reasons: Cerebrovascular accident Inpatient Physical Therapy Evaluation Date: 04/03/2025 Referring Doctor: Dr Andrés Salinas PT Orders: PT CONSULT: Fall Safety Assessment Precautions: Fall Risk, Telemetry, Standard, Visual deficits, Pusher syndrome Left, Right hemiparesis Patient Profile/Admitting Diagnosis: Pt is a 74 yo female presented to ED with RLE weakness and expressive aphasia. Pt noted 3 days prior right foot dragging then 1 day prior difficulty with speech and leg. She woke in the am worse therefore presented to ED. CTA negative; CxR unremarkable. Neuro consult recommended Aspirin, plavix, , ECHO, telemetry and Brain MRI. While in ED, pt noted to have some resolution of symptoms. Pt admitted to med Surg Unit for further medical management and PT Consult. Pt underwent MRI on 04/03 revealed: Acute infarct seen in the medial aspect of the left ricks radiata. 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 ECHO: LVEF 75% PMHX: Systolic murmur (Acute) Dysphasia (Acute) Acute CVA (cerebrovascular accident) (Acute) Hyperglycemia (Acute) Weight gain (Acute) Insomnia (Acute) Herpes zoster (Acute ~03/2021) CKD stage G3a/A1, GFR 45-59 and albumin creatinine ratio <30 mg/g (Acute) Hyperlipidemia (Acute) Urge incontinence (Acute) Nocturia (Acute) Dermatitis, seborrheic (Chronic) right ear 2-3 x year Malignant neoplasm of unspecified site of left female breast (Acute 12/18/15)[facility] [place] Essential hypertension (Acute) 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 [place]; CT stopped- no changes in nodule HTN (hypertension) Neoplasm of female breast Surgical History History of hysterectomy HYSTERECTOMY has cervix and ovaries Colonoscopy - IV Sedation (04/09/16) Social History/Home Situation: Pt resides with her in 2 story home with 2 steps no rails to enter. Pt has a flight of stairs with left rail to her Bedroom and bathroom. 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 Pt has a small dog Santos Current Functional Limitations: impaired bed mobility, transfers and ambulation Equipment Owned/DME: none Subjective: Pt weepy intermittently throughout session. provided prior level of function and home situation Objective: [] General Observation: weepy, labile females semireclined in bed, RUE in extensor tonal pattern, , slight right facial droop head rotated to the right and forward flexed. Keith present. Pt dysartric speech, Mental Status: Alert oriented to person, place, month and year with increased time to respond, cooperative, agreeable to participate Pain: denied Vital Signs: BP 153/72, 83, 99% on RA ROM: Right Upper Extremity: PROM WFL with prolonged stretch to reduce tone Left Upper Extremity: WFL Right Lower Extremity: PROM WFL DF to neutral at risk for contracture Left Lower Extremity: WFL Strength: Neck: impaired extensors Right Upper Extremity: No AROM noted increased extensor tone shoulder and elbow. Slight shoulder shrug noted in sitting Left Upper Extremity: >/= to 3/5 Right Lower Extremity: no volitional movement on command however demonstrates spontaneous movements in flexor pattern in sit and supine, absent DF Left Lower Extremity: >/= to 3/5 Sensation: appears intact to touch and pain. unable to assess kinesthetic awareness as pt became weepy Bed Mobility/Transfers: [] rolling B directions Max A of 1 with cues for LUE and LLE placement to assist supine to sit : Max A of 1 via sidelying sit to supine Max A of 1 then Dependent of 2 to boost up in bed Sit to/from stand from bed Max A of 1 without UE support to reduce pusher. Pt able to WB through BLE; requires RLE to be blocked at foot and knee Gait: Unable to assess at this time Balance: [] Static Sitting: Poor + Dynamic Sitting: Poor Static Standing: Unable Dynamic Standing: Unable Neuro: (+) Multi beat CLonus Right foot (+)flexor withdrawal RLE unable to assess DELMI R d/t impaired motor control Unable to perform finger to nose with visual deficit noted but does attempt to spontaneously scan environment to locate finger Special Tests: Mobility Limitations Standardized Measure [facility]-PAC 6 clicks Basic Mobility Inpatient Short Form: Raw Score: 9 CMS Score: 81.38% Informed Consent/Education: Patient instructed in purpose of PT consult and plan of care. Treatment: 99453: facilitating sit to stand from elevated bed with max A of 1 for R trunk support and blocking RLE d/t extensor tone Facilitating scooting on edge of bed Max A to R requiring Right LE to be blocked to break up extensor tone pattern. Scooting to the left unable d/t severity of Pusher Syndrome 17882: facilitation of body orientation to midline in supine , sit and stand supine: head rotation, scanning seated: mod A to sit in midline performed multiple reps of down on left elbow to reduce Pusher syndrome effect with pt able to sustain down on elbow with min A for 30 sec x 3 with return to minline able to sustain midline trunk with head rotation to the left stand: Max A with Right foot blocked and LUE not supported to minimize pusher Assessment: Patient is a 74year old female referred to physical therapy services with the diagnosis of CVA. Patient presents with clinical signs and symptoms consistent with Left CVA with right hemiparesis, as demonstrated by the following impairment level findings: 1. impaired strength/ motor control RUE and RLE -- RUE flaccid 2. impaired sit/stand balance 3. impaired activity tolerance 4. extensor tone RUE/ RLE 5. visual deficit 6. dysarthria 7. emotionally labile 8. 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 AMPAC score. 2. decline in bed mobility skills 3. decline in transfer skills 4. inability to ambulate 5. inability to perform stairs 6. High fall risk 7. increased time to complete ADL and mobility tasks Pt would benefit from Acute inpatient rehabilitation to promote motor return, reduce tonal effects and maximize independence with all aspects of mobility as quickly as possible. Patient is assessed as a Moderate 78951 complexity based on the following: History: 74 yo female presenting with complex medical history and commorbidites Examination: as outlined above Presentation: evolving Decision Making: moderate Goals: Goals X1 week 1. Supine-Sit min A of 1 2. Sit-Supine mod A of 1 3. Sit-Stand mod A of 1 4. Stand-Sit mod A of 1 5. Bed-Chair pivot transfer mod A of 1 6. Chair-Bed pivot transfer mod A of 1 7. Pt will sit in midline at edge of bed in prep for transfers with CGA > 5 mins Plan of Care/Treatment Plan: 1-2x/day, 7 days/week x 1 week. Plan of care has been reviewed with the SHREDDER TENDER PEAT providing the service under Physical Therapy direction. Initiate Physical Therapy intervention for strengthening, bed mobility, transfers, gait, stairs, balance training, use of assistive device. DISCHARGE RECOMMENDATIONS: Acute Inpatient Rehabilitation for Stroke recovery TREATMENT CODE/TIME: 07449,12719/ [id number]
--- NOTE | 2025-04-03 10:41 | PGE_ITS ---
Date of Service Date of service: 04/03/25 Time of Service: 17:35 Assessment and Plan Assessment and plan (1) Acute stroke due to ischemia: Status: Acute Assessment and plan: MRI of the brain: Positivefor left ricks radiata consistent with a acute/subacute infarct, old left MCA distribution infarct; several areas of hyperintense signal seen in the white matter on the FLAIR and T2 weighted images consistent with chronic microvascular ischemic disease. Ongoing plavix and ASA On high intensity Statin PT consult OT consult A1C 5.2 Lipid panel see- hypelipedemia Tele- neuro completed CTA head and neck negative on admission Acute rehabilitation need (2) Dysphasia: Status: Acute Assessment and plan: Speech therapy ongoing (3) Essential hypertension: Status: Acute Assessment and plan: Home lisinopril on hold 24-36 hours for permissive HTN - Call for SBP > 160 BP 130/73 (4) Hyperlipidemia: Status: Acute Assessment and plan: On atorvastatin. lipid panel: LDL 105 (5) DCIS (ductal carcinoma in situ): Status: Acute Assessment and plan: Hx of (6) Insomnia: Status: Acute Assessment and plan: ongoing amitriptyline for insomnia Defer further management to the outpatient setting. (7) Systolic murmur: Status: Acute Assessment and plan: Echocardiogram w/o acute findings Discussed with Dr Salinas Discharge Planning Discharge Plannin-3 days Subjective Subjective Patient reports: no new complaints, tolerating liquids well, tolerating a regular diet and other (Emotional distress is acute - crying - patient aware of stroke ); denies diarrhea, nausea, vomiting, shortness of breath or afebrile Exam Narrative Exam Narrative: Alert and oriented X 3, right side hemiplegia upper ext with decorticating motion of hand and spasticity - paresis to lower ext- restless LLE when ask to move , PEERLA 2/ B, cranial nerve exam : unable to shrug right shoulder, touch nose w right hand - or task requiring right limbs most likely d/t stroke, speech still slurred, ongoing positive NIHS scale - not worsening, S1, S2 regular , no murmur , clear lungs unlabored breathing, abdomen is non acute, no bladder distention Objective Last Vital Signs Temp 36.6 C 04/03/25 07:13 Pulse 83 04/03/25 07:13 Resp 18 04/03/25 07:13 BP 153/72 H 04/03/25 07:13 Pulse Ox 99 04/03/25 07:13 Laboratory Results - last 24 hr 04/02/25 04/02/25 04/02/25 10:44 11:45 11:55 WBC 8.60 RBC 4.83 Hgb 14.2 Hct 42.9 MCV 89 MCH 29.4 MCHC 33.1 RDW 14.2 Plt Count 218 MPV 11.0 Immature Gran % 0.3 Neutrophils % 70.0 Lymphocytes % 17.8 Monocytes % 6.0 Eosinophils % 5.0 Basophils % 0.9 Nucleated RBC % 0.0 Absolute Neutrophils 6.01 Absolute Lymphocytes 1.53 Absolute Monocytes 0.52 Absolute Eosinophils 0.43 Absolute Basophils 0.08 PT 9.6 INR 1.0 APTT 25.8 Sodium 142 Potassium 4.0 Chloride 108 H Carbon Dioxide 24.2 Anion Gap 9.8 BUN 21 Creatinine 1.07 H Est GFR (CKD-EPI 2020) 50.22 Glucose 102 Hemoglobin A1c Calcium 9.4 Magnesium 2.1 Total Bilirubin 0.9 AST 28 ALT 27 Alkaline Phosphatase 103 Troponin I 4 3 Total Protein 7.5 Albumin 4.4 Triglycerides Total Cholesterol LDL Cholesterol, Calc HDL Cholesterol TSH Urine Color Yellow Urine Clarity Clear Urine pH 7.0 Ur Specific [place] 1.010 Urine Protein Negative Urine Ketones Negative Urine Blood Trace-intact H Urine Nitrite Negative Urine Bilirubin Negative Urine Urobilinogen 0.2 Ur Leukocyte Esterase Negative Urine RBC 0-2 Urine WBC Negative Ur Epithelial Cells Rare Urine Crystals Negative Urine Bacteria Negative Urine Casts Negative Urine Mucus Negative Ur Culture Indicated? No Urine Glucose Negative 04/02/25 04/03/25 13:56 06:25 WBC RBC Hgb Hct MCV MCH MCHC RDW Plt Count MPV Immature Gran % Neutrophils % Lymphocytes % Monocytes % Eosinophils % Basophils % Nucleated RBC % Absolute Neutrophils Absolute Lymphocytes Absolute Monocytes Absolute Eosinophils Absolute Basophils PT INR APTT Sodium 144 Potassium 3.7 Chloride 110 H Carbon Dioxide 23.2 Anion Gap 10.8 BUN 17 Creatinine 0.93 Est GFR (CKD-EPI 2020) 59.04 Glucose 101 Hemoglobin A1c 5.2 Calcium 9.5 Magnesium Total Bilirubin AST ALT Alkaline Phosphatase Troponin I 5 Total Protein Albumin Triglycerides 107 Total Cholesterol 187 LDL Cholesterol, Calc 105.9 H HDL Cholesterol 60 TSH 8.45 H Urine Color Urine Clarity Urine pH Ur Specific [place] Urine Protein Urine Ketones Urine Blood Urine Nitrite Urine Bilirubin Urine Urobilinogen Ur Leukocyte Esterase Urine RBC Urine WBC Ur Epithelial Cells Urine Crystals Urine Bacteria Urine Casts Urine Mucus Ur Culture Indicated? Urine Glucose VTE Prohylaxis Risk Level: Moderate/High Risk Contraindications: None Prophylaxis: Pharmacologic Time Spent with Patient Time Spent with Patient: >50 minutes Time was spent: preparing to see the patient(eg.review tests), obtaining and/or reviewing separately otained hiistory, ordering medications,tests, procedures, referring, communicating with other health critical care registered nurse, indepentently interpreting results, counseling the patient, care coordination and other
[2025-04-03 12:42] VITALS: BP 145/72; PULSE 87; RESP 18; TEMP 36.7; O2SAT 97
--- NOTE | 2025-04-03 12:44 | W.SPSTE ---
Date of service: 04/03/25 Time of Service: 12:00 Subjective Clinical (Bedside) Swallow Evaluation Speech Language Pathology Referred by: Dr. Salinas Referral Type: Clinical Swallow Evaluation Reason for Referral/HPI: Dysphagia CURRICULUM COORDINATOR IMPRESSIONS & RECOMMENDATIONS: Pt managed regular consistencies and thin liquids during IE today, however PO intake was limited, due to pt requesting to be finished with evaluation. Recommend pt continue with a regular consistencies diet and thin liquids, with plan for CURRICULUM COORDINATOR department follow up with nursing and pt tomorrow to ensure appropriate diet. See below for safe swallow recommendations. FURTHER CURRICULUM COORDINATOR SERVICES: Patient to be followed while on unit. Recommend assessing speech and language as well Diet Recommendations: SOLIDS: 7-Regular Solids LIQUIDS: 0-Thin Liquids MEDICATIONS: Whole with 0-Thin Liquids, RISK MANAGEMENT: HOB upright as tolerated; upright for all PO intake. Oral hygiene after all PO intake Level of Assistance/Supervision: 1:1 distant supervision for all PO intake, assist with tray set up (e.g. cutting food into bite sized pieces). PO intake only when awake/alert? Strategies/Adaptations/Assistive Equipment: Sips by straw only, alternate liquids and solids Posture/Positioning Needs: Maintain upright position at least 30 minutes after meals, SUBJECTIVE: Patient in bed with in room when CURRICULUM COORDINATOR arrived. Pt was agreeable to an evaluation when CURRICULUM COORDINATOR first entered, but then became very emotional when pt's said he was going home. wind power project manager came into room and had discussion with pt and , while CURRICULUM COORDINATOR stepped into the hallway. When CURRICULUM COORDINATOR returned, pt was agreeable to evaluation, however very hesitant. She continued to say that she did not feel like herself, and felt like she was in '[place]'. Swallow evaluation consisted of limited PO trials, as pt eventually requesting to end. Baseline Swallow Function: denies prior swallow difficulties and reports that pt eats a regular diet at baseline. PO Trials Assessed: [x] IDDSI 0 Thin Liquids [x] IDDSI 4 Puree Solid [x] IDDSI 7EC Easy to Chew Solid [x] IDDSI 7 Regular Solid Oral Mechanism Examination: Pt refused participation in oral mechanism examination. Based on observations during swallow evaluation, dentition appears fair (some dental decay). Pt did not participate in oral mechanism examination, but CURRICULUM COORDINATOR noted right sided weakness. Additionally, pt regularly adjusting and rubbing her eyes to look at tray. She was able to find all items on the tray, but demonstrated some difficulty reaching out to grab a cup from CURRICULUM COORDINATOR. Oral Phase Findings: [x] Anterior leakage from mouth - right side 1x [x] Pocketing - able to clear when cued by CURRICULUM COORDINATOR. Used a combination of tongue sweeps, finger sweeps, and liquid washes. [x] Residue - see above. Pharyngeal Phase Findings: suspect WFL No overt s/s aspiration today ASSESSMENT: Pt is a 74 year old woman who presents with dysphagia and speech and language deficits following a stroke. Pt participated for a brief swallow evaluation today. She managed IDDSI 7 Regular Solid and thin liquids without overt s/s aspiration. Recommend strategies such as oral care after all PO intake, alternating liquids and solids, upright all meals, use of straw with liquids and more (see full report) are implemented to reduce risk of aspiration. Recommend that CURRICULUM COORDINATOR department complete follow up tx session tomorrow to ensure that pt is managing this diet, given limited trials observed today. Also recommend further evaluations to assess pt's speech clarity and word finding, however pt was unable to participate today. Further CURRICULUM COORDINATOR Services indicated. Patient to be followed while on unit, given limited trials today, to ensure appropriate diet. Education Provided to: Nursing, patient and family Topics Addressed: anatomy/physiology of swallowing mechanism, overt s/sx to monitor for re: potential aspiration of food / liquids, safe swallow recommendations. PLAN: Frequency: 1x follow up, then determine if further tx is needed. Goals: Group Home Goals: Patient will tolerate IDDSI 7 Regular Solid Diet and Thin liquids without overt s/s aspiration across 1 visit. Short Term Goals: Defer to engineer fishing vessel goal CURRICULUM COORDINATOR CPT Code: 04316 Clinical Swallowing [id number]?Evaluation of speech sound production with evaluation of language comprehension and expression TOTAL TIME: 30 Minutes
--- NOTE | 2025-04-03 14:13 | OTIE_ITS ---
Occupational Therapy Notes Inpatient Occupational Therapy Evaluation Date: 04/03/25 Referring Doctor: Anila Vee NP OT Orders: Non Urgent Precautions: Fall, Standard, Full PATIENT PROFILE/ADMITTING DIAGNOSIS: Pt is a 74 year old female who was brought to the ED on 04/02/25 with history of hypertension breast cancer hyperlipidemia. Pt presented with slurred speech, right arm and leg weakness since the prior evening. Prior to her arrival at the ED she did note some improvement in her symptoms but she was unable to walk and her speech was very slurred upon arrival. She was admitted to Med Surg with the dx of dysphasia and acute hemorrhagic stroke. Past Medical History: All Active Problems (Updated 04/02/25 @ 19:27 by Abel Wdae MD) Systolic murmur (Acute) Dysphasia (Acute) Acute CVA (cerebrovascular accident) (Acute) Hyperglycemia (Acute) Weight gain (Acute) Insomnia (Acute) Herpes zoster (Acute ~03/2021) CKD stage G3a/A1, GFR 45-59 and albumin creatinine ratio <30 mg/g (Acute) Hyperlipidemia (Acute) Urge incontinence (Acute) Nocturia (Acute) Dermatitis, seborrheic (Chronic) right ear 2-3 x year Malignant neoplasm of unspecified site of left female breast (Acute 12/18/15) [facility] [place] Essential hypertension (Acute) 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 [facility]; CT stopped- no changes in nodule HTN (hypertension) Neoplasm of female breast Surgical History History of hysterectomy HYSTERECTOMY has cervix and ovaries Colonoscopy - IV Sedation (04/09/16) Social History/Home Situation: Pt lives in a private home with her . She states yes when asked if she was (I) at her baseline level of function. She used to drive and perform all of her ADL/IADL routines. She is unable to provide OT with details on her baseline. Per pts EMR- CM states, Angela lives in [place] and has been to her Sanju for 60 years. They have 2 daughters, Angie and Dayan, both are supportive and live locally. 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 She has a two story home with a full flight of stairs to get to the second floor. Equipment owned/DME: None SUBJECTIVE: Pt was lying in bed when OT arrived. She is fatigued and OT is able to ask her yes or no questions but minimal verbal communication. Some later in the consult but pt is not speaking in full sentences. OBJECTIVE: General Observation: Pleasant, dysphagia with minimal verbal communication, redness under the (L) eye and slightly under the (R), incontinent, (R) sided lean and sway, (R) UE tone with any AROM, (R) sided neglect Mental Status: Alert to name, month Pain: Pt does not note any pain during OT consult ROM: RUE No AROM at this time of shoulder, elbow, wrist, hand and digits L UE AROM WFL STRENGTH: RUE unable to test LUE Community Affairs Director strength is functional, shoulder flexion 2+/5, bicep 3/5, Tricep 3+/5 FUNCTIONAL MOBILITY/ADLS: BATHING max (A) Set up/clean up, sitting in bed with max (A) back and core support, mod vc Bathing UE (I) face with use of the (L) UE, max (A) (B) UE, max (A) abdomen Bathing LE max (A) (B) LE DRESSING sitting in bed Dressing UE max (A) don and doffing [facility] gown Dressing LE max (A) don and doffing (B) socks GROOMING Able to bring hand to head and face with mod vc. Unable to perform multi step task of brushing hair without (A) TOILETING incontinent at this time EATING (I) with (L) hand, able to bring food to mouth. BALANCE: Static sitting Fair-Poor with (R) sided lean and neglect Dynamic Sitting Poor with (R) sided lean and neglect SPECIAL TESTS: Daily Activity Limitations Standardized Measure [facility] AM -PAC ?6 clicks? Daily Activity Inpatient Short Form: Raw score: 10 Standardized score: 27.31 CMS score: 74.70% INFORMED CONSENT/EDUCATION: Pt instructed in purpose of OT Consult and plan of care. ASSESSMENT: Patient is a 74-year-old female referred to occupational therapy services with diagnosis of acute stroke due to ischemia, systolic murmur, dysphasia, acute CVA, hyperglycemia. Patient presents with clinical signs and symptoms consistent with dx, as demonstrated by the following impairment level findings/functional limitations: Impairments in ADL/IADL routines Decreased bed mobility Decreased functional mobility required for ADL performance Dysphasia (R) sided neglect (R) sided tonal response with any AROM to the UE (R) sided visual deficit no AROM of the (R) UE Minimal communicative responses with conversational construct Requires mod-max (A) for all ADL/IADL routines AMPA score 10 Patient is assessed as a high 64201 complexity based on the following: History: see above Examination: see functional limitations as noted above Presentation: evolving Decision Making: AMPAC score 10 GOALS Goals x1 week 1. Transfers- in supine pt will be able to roll from side to side with mod (A) to (A) with LE dressing. 2. Dressing- sitting in bed pt will be able to don and doff her hospital gown with mod (A), mod (I) LE for socks 3. Bathing- sitting in chair, (I) face and (R) UE with (L) UE use, (I) abdomen and mod (A) to knees, max (A) from knees to (B) feet 4. Toileting- on commode with max (A) toileting hygiene 5. Eating- seating in chair for 2/3 meals (I) with hand to mouth and appropriate use of silverware in the (L) UE PLAN OF CARE/TREATMENT PLAN: 1x/day, 3-5 days/ week x 1week Initiate Occupational Therapy Services for bathing, dressing, grooming, toileting, eating, transfer training. DISCHARGE RECOMMENDATIONS Acute rehab when medically cleared per MD for intensive acute stroke rehabilitation for UE/LE deficits, (R) sided neglect and deficits in her ADL/IADL routines. TREATMENT TIME/MINUTES/CODES 80934. 74215, 30 minutes Sara Waddell OTR/[facility] [place], [place]
--- NOTE | 2025-04-03 14:26 | PHA.REVIEW2 ---
Pharmacy Admission Review Admission Clinical Review Admission Pharmacy Review: Acute stroke due to ischemia (Acute) Systolic murmur (Acute) Dysphasia (Acute) Insomnia (Acute) Hyperlipidemia (Acute) Essential hypertension (Acute) DCIS (ductal carcinoma in situ) (Acute) meperidine (From Demerol) Adverse Reaction (Severe, Verified 04/02/25 10:52) severe nausea and vomiting Resuscitation Status Full Code Height 5 ft 3 in Weight 75.7 kg Pharmacy Admission Review Renal Dosing Renal Dosing: BUN 17 mg/dL (9-23) 04/03/25 06:25 Creatinine 0.93 mg/dL (0.55-1.02) 04/03/25 06:25 Medications needing adjustments: Reviewed (CrCl 48.82 mL/min) List of meds needing interventions: Current medications are okay Anticoagulation Anticoagulation: Hgb 14.2 g/dL (11.2-15.7) 04/02/25 10:44 Hct 42.9 % (36.0-46.0) 04/02/25 10:44 Plt Count 218 10^3/uL (130-400) 04/02/25 10:44 INR 1.0 (0.9-1.1) 04/02/25 10:44 Creatinine 0.93 mg/dL (0.55-1.02) 04/03/25 06:25 DVT Prophylaxis: Reviewed Medications: Enoxaparin (40mg daily) Relevant Labs Relevant Labs: Sodium 144 mmol/L (136-145) 04/03/25 06:25 Potassium 3.7 mmol/L (3.5-5.1) 04/03/25 06:25 Chloride 110 mmol/L (98-107) H 04/03/25 06:25 Magnesium 2.1 mg/dL (1.6-2.6) 04/02/25 10:44 Electrolytes, C-Reactive P, ESR: Reviewed Cardiac Review Cardiac Review: Troponin I 5 ng/L (<35) 04/02/25 13:56 Blood Pressure 145/72 1242 Blood Pressure 153/72 0713 BP, HR, EF%: Reviewed (HR WNL) List meds needing interventions: Permissive hypertension per H+P. Has order for amlodipine 10mg daily QTc Review QTc: Reviewed (466 from 04/02/25) IV to PO Switch IV Medications: Reviewed Home Meds Home Med List reviewed: Intervened Relevent Home Meds Not ordered & why?: lisinopril (on hold per H+P) Amlodipine is on home med list as 5mg BID but order is for 10mg daily. Sent message to provider to see why this was changed. Provider looking into it. Current Meds Current Medication Order Review: Reviewed
[2025-04-03 15:39] VITALS: BP 130/73; PULSE 76; RESP 16; TEMP 36.9; O2SAT 99
[2025-04-03] MEDS: Acetaminophen 500 MG TAB PO (17:03)
[2025-04-03] MEDS: Acetaminophen 500 MG TAB 1000 MG PO (19:47)
[2025-04-03] MEDS: Amitriptyline 10 MG TAB PO (19:48)
[2025-04-03] MEDS: Atorvastatin 40 MG TAB 80 MG PO (19:48)
[2025-04-03 20:35] VITALS: BP 145/76; PULSE 65; RESP 19; TEMP 36.8; O2SAT 95
[2025-04-04] VITALS (7 sets, daily range): BP systolic 105–149; BP diastolic 60–79; PULSE 63–98; RESP 16–19; TEMP 36.3–36.8; O2SAT 94–99
[2025-04-04] MEDS: amLODIPine 5 MG TAB 10 MG PO (08:15)
[2025-04-04] MEDS: Clopidogrel 75 MG TAB PO (08:15)
[2025-04-04] MEDS: Acetaminophen 500 MG TAB 1000 MG PO ×2 (08:18→17:13)
[2025-04-04] MEDS: Enoxaparin 40 MG/0.4 ML SYR SC (08:18)
[2025-04-04] MEDS: Aspirin 81 MG CHEW PO (08:18)
[2025-04-04] MEDS: Triamcinolone 0.1% CR 15 GM TUBE TP ×2 (08:18→22:10)
[2025-04-04] MEDS: Lisinopril 5 MG TAB PO (08:19)
--- NOTE | 2025-04-04 08:26 | CMPROGNOTE_ITS ---
Date of service: 04/04/25 Time of Service: 08:26 Care Management Progress Note Progress Note Text Progress Note Text: Angela was sitting in a recliner and is accompanied by her when CM met with her. She requires acute rehab on discharge and [facility] and [facility] are reviewing 04/04/25 her referral and updated clinicals were sent at their request. Bed offer pending PA is received from [facility], waiting on a decision from [facility] (which [place] the [place] choice due [place] [facility] [place] A bed offer (pending prior auth) was made by [facility] this afternoon, bed offer was accepted. Once PA in approved, additional coordination efforts will continue. CM will follow. Discharge Potential Discharge Needs: Consult and PCP F/U Appt Anticipated Barriers to Discharge: Bed availability and Medical Status Patient/Family Education Needs: Review discharge instructions, discuss Ask Me Three Transportation: Other (Depending on dispo, RCT W/C van vs family) Plan: Angela accepted a bed offer from [facility] (pending prior auth). Once PA in approved, discharge coordination efforts will continue. Transportation will be dependent on [employer] mobility, likely RCT w/c van. CM will follow. Social Determinants of Health Screening Social Determinants of health last assessed in clinic: 04/04/25 Will the Patient Participate in the Screening?: Yes Do you worry about having a steady place to live?: no Problems where you live: no known problems In the past 12 months, have you had to go without electric, gas, oil or water in your home?: no 1. Within the past 12 months, we worried whether our food would run out before we got money to buy more.: Never true 2. Within the past 12 months, the food we bought just didn't last and we didn't have money to get more.: Never true Has lack of transportation kept you from medical appointments or from doing things needed for daily living?: no Has anyone in your life made you feel unsafe or unsupported?: no How hard is it for you to pay for the very basics like food, housing, medical care, and heating? Would you say it is:: Not hard at all Do you want help finding or keeping work or a job?: I do not need or want help If for any reason you need help with day-to-day activities such as bathing, preparing meals, shopping, managing finances, etc., do you get the help you need?: I don?t need any help How often do you feel lonely or isolated from those around you?: Never Do you speak a language other than Persian at home?: No Does the patient want assistance with any of the above?: No
--- NOTE | 2025-04-04 12:03 | PT.INTREAT ---
PT Notes Visit Reasons: Cerebrovascular accident Inpatient Physical Therapy Treatment Note [facility] Date: 04/04/2025 PRECAUTIONS:Fall Risk, Telemetry, Standard, Pusher syndrome Left, Right hemiparesis SUBJECTIVE: Pt reports she had cramping in her right leg all night and was unable to sleep. OBJECTIVE: supine in bed with her visiting , Right hand with rolled wahcloth in it and BUE elevated on pillow ? PAIN:denied pain at time of session VITALS: ?monitored by telemetry and nursing Therapeutic Activities ([id number][]): Direct one-on-one instruction in dynamic activities to improve functional performance. ? BED MOBILITY/TRANSFERS? Rolling L/R: mod A to left , max A to right Supine-sit: with HOB elevated to 50 degrees, toward right with mod A of 1? (am/pm)? Sit-supine: max A of 1 (pm session) ? Sit-stand: from bed with use of HW max A of 1 with right knee blocked and CGA of 1 x 4 trials? Stand-sit: max A of 1 ? Bed-Chair: Max A of 1 min A of 1 pivot transfer to the right ? Provided skilled cues and instruction on performance and technique throughout. (am/pm session) Neuromuscular Re-education ([id number][]): Activities that facilitate re-education of movement balance, posture, coordination, and proprioception or kinesthetic sense, requiring skilled tactile and verbal cues ? Exercises/techniques: ? (am) facilitation of body orientation to midline in sit and stand seated: min A to sit in midline initially then performed multiple reps of down on left elbow to reduce Pusher syndrome effect with pt able to sustain down on elbow with min A for 30 sec x 3 with return to midline able to sustain midline trunk with head in neutral position with SBA. B feet on floor and RUE WB through bed. stand: Max A with Right foot blocked and LUE Supported less pusher noted this session until last trial as pt fatigued. (pm) facilitation of proprioception and kinesthetic awareness RLE through deep pressure in seated at EOB , facilitation of righting reactions in sit with down on elbow right and return ot midline. ASSESSMENT:?Pt noted with less extensor tone right UE, less spontaneous movement in RLE this date. Pt however able to tolerate increased reps and perform pivot transfer to chair with PT. Recommend Nursing to utilize melquiades lift 2 assist for transfers for patient and staff safety. Pt will require orthotic/bracing of right ankle to aide in knee control prior to gait training. PLAN: Cotinue with balance retraining, transfer and motor control until discharge to acute rehab facility TREATMENT CODE/TIME: am: 83896, [id number]/ [id number] pm [id number] DISCHARGE RECOMMENDATION: Acute rehab facility
--- NOTE | 2025-04-04 13:21 | PGE_ITS ---
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 Continue plavix and ASA Ongoing high intensity Statin Tx Ongoing PT and OT consultations : please read notes- recommendation for acute intensive rehabilitation A1C 5.2 Lipid panel see- point 4 Tele- neuro completed CTA head and neck negative on admission Acute rehabilitation need- referral sent by CM- offer pending PA (2) Dysphasia: Status: Acute Assessment and plan: Speech therapy ongoing (3) Essential hypertension: Status: Acute Assessment and plan: Home lisinopril on held 24-36 hours for permissive HTN - will resume and adjust PRN BP 130/73 (4) Hyperlipidemia: Status: Acute Assessment and plan: On atorvastatin. lipid panel: LDL 105 (5) DCIS (ductal carcinoma in situ): Status: Acute Assessment and plan: Hx of (6) Insomnia: Status: Acute Assessment and plan: ongoing amitriptyline for insomnia Defer further management to the outpatient setting. (7) Systolic murmur: Status: Acute Assessment and plan: Echocardiogram w/o acute findings Discussed with Dr Salinas Subjective Subjective Patient reports: no new complaints, pain is less, tolerating liquids well, tolerating a regular diet, voiding w/o difficulty, flatus and bowel movement; denies diarrhea, nausea, vomiting, shortness of breath or fever Exam Narrative Exam Narrative: Alert and oriented X 4, right side hemiplegia : paralysis to R upper ext with initial spasticity progressing to flacid - marked paresis to R lower ext- 1/5, no resistance to gravity- decreased restless LLE when ask to move , PEERLA 2/ B, cranial nerve exam : unable to shrug right shoulder, touch nose w right hand - or task requiring right limbs most likely d/t stroke, speech still slurred, ongoing positive NIHS scale - stable - decreased emotional lability , S1, S2 regular , no murmur , clear lungs unlabored breathing, abdomen is non acute, no CVA tenderness Objective Last Vital Signs Temp 36.3 C L 04/04/25 11:14 Pulse 98 H 04/04/25 11:14 Resp 16 04/04/25 11:14 BP 149/79 H 04/04/25 11:14 Pulse Ox 94 04/04/25 11:14 VTE Prohylaxis Risk Level: Moderate/High Risk Contraindications: None Prophylaxis: Pharmacologic Time Spent with Patient Time Spent with Patient: >50 minutes Time was spent: preparing to see the patient(eg.review tests), obtaining and/or reviewing separately otained hiistory, ordering medications,tests, procedures, referring, communicating with other health home health care social worker, indepentently interpreting results, counseling the patient, care coordination and other
--- NOTE | 2025-04-04 14:01 | OT.INTREAT ---
Occupational Therapy Notes Occupational Therapy Inpatient Treatment Note Date: 04/04/25 PRECAUTIONS: Fall, Standard, Full SUBJECTIVE: Pt was lying in bed when OT arrived. She is able to better communicate verbally today, she notes that she had increased pain in her (R) LE last night and states that it hurt really bad. Nursing and MD are aware and RN was receptive to pts care and taking care of this. OBJECTIVE: PAIN: c/o pain in (R) LE VITALS: Monitored by nursing. FUNCTIONAL MOBILITY Rolling L/R: Max (A) BATHING: performed with nursing when OT arrived Upper Body: Max (A) Lower Body: Max (A) DRESSING: lying in bed and performed with nursing when OT arrived Upper Extremity: max (A) [facility] TOILETING: pt is incontinent at this time, max (A) toileting hygiene Manual Therapy [id number]: Pts (R) UE sits on her abdomen with no functional AROM at this time. OT worked manually on pts (R) UE starting with ROM to the (R) shoulder, elbow, wrist and digits which pt tolerated well. Pt has some pain in the (R) elbow with full extension which she notes happens when she moves the (R) UE. OT performed AP mobs to pts wrist and digits, then performed tone reduction techniques and educated and trained pt in tone reduction if the (R) UE were to go into spasm. Pt is able to demonstrate this and OT worked on pts wrist and elbow ROM. IASTM to the medial elbow which seems to carry tension in the UE and causing pt increased pain. Pt is receptive to this, she is noting increased discomfort in the (R) LE. OT did go to speak with RN who is receptive to (A) pt and supportive of helping pt with this. OT will monitor pts response to todays session and progress accordingly. ASSESSMENT/PLAN: Pt is more verbal today when OT arrived. She is having difficulty with tone in both the (R) UE and LE at this time. She notes that her LE is causing her increased pain and she is having difficulty with resting position. Nursing has her in good bed position with support to the (R) side. Functionally she still has no AROM of her (R) UE but it is not flaccid, still tone. She describes it that she feels like she is moving her fingers but they aren't moving externally. OT continues to recommend that pt go to acute skilled rehab at this time for stroke management. TREATMENT CODES/TIME: [id number], 40 minutes Sara Waddell OTR/[facility] [place], [place]
[2025-04-04] MEDS: Pantoprazole 40 MG VIAL IVP (14:21)
[2025-04-04] MEDS: Normal Saline Flush 10 ML SYR IVP (14:22)
[2025-04-04] MEDS: Ketorolac 15 MG/ML VIAL IVP (14:22)
[2025-04-04] MEDS: Amitriptyline 10 MG TAB PO (20:33)
[2025-04-04] MEDS: Melatonin 3 MG TAB 9 MG PO (20:34)
[2025-04-04] MEDS: Atorvastatin 40 MG TAB 80 MG PO (20:34)
[2025-04-05 03:43] VITALS: BP 134/54; PULSE 65; RESP 17; TEMP 36.9; O2SAT 97
[2025-04-05 07:07] LABS: Abs Immature Grans 0.01 10^3/uL (0.0-0.06); HCT 41.3 % (36.0-46.0); HGB 13.6 g/dL (11.2-15.7); Immature Grans % 0.2 %; MCH 28.9 pg (27.0-33.0); MCHC 32.9 % (32.0-36.0); MCV 88 fL (80-95); MPV 11.2 fL (8.0-11.0); Platelet Count 184 10^3/uL (130-400); RBC 4.70 10^6/uL (3.93-5.22); RDW 13.9 % (11.7-14.6); RDW-SD 44.9 fL; WBC 6.10 10^3/uL (4.4-10.8)
[2025-04-05 07:26] LABS: Magnesium 2.0 mg/dL (1.6-2.6)
[2025-04-05 07:28] LABS: Anion Gap 9.9 mmol/L (3-11); BUN 25 mg/dL (9-23); CO2 24.1 mmol/L (20.0-31.0); Calcium 9.9 mg/dL (8.3-10.6); Chloride 109 mmol/L (98-107); Glucose 97 mg/dL (74-106); Potassium 3.8 mmol/L (3.5-5.1); Sodium 143 mmol/L (136-145)
[2025-04-05 07:58] VITALS: BP 138/70; PULSE 79; RESP 16; TEMP 36.9; O2SAT 99
[2025-04-05] MEDS: Acetaminophen 500 MG TAB 1000 MG PO ×2 (09:53→20:21)
[2025-04-05] MEDS: Clopidogrel 75 MG TAB PO (09:53)
[2025-04-05] MEDS: Pantoprazole 40 MG VIAL IVP (09:53)
[2025-04-05] MEDS: amLODIPine 5 MG TAB 10 MG PO (09:53)
[2025-04-05] MEDS: Aspirin 81 MG CHEW PO (09:53)
[2025-04-05] MEDS: Lisinopril 5 MG TAB PO (09:53)
[2025-04-05] MEDS: Enoxaparin 40 MG/0.4 ML SYR SC (09:54)
[2025-04-05] MEDS: Normal Saline Flush 10 ML SYR IVP ×2 (09:54→20:22)
--- NOTE | 2025-04-05 10:43 | PTTR_ITS ---
Date of service: 04/05/25 PT Notes Visit Reasons: Cerebrovascular accident Inpatient Physical Therapy Treatment Note [facility] Date: 04/05/2025 PRECAUTIONS:Fall Risk, Telemetry, Standard, Right hemiparesis, RUE sling for transfers only, No BP RUE, dysarthria SUBJECTIVE: Pt reports that the right side of her face is numb now. She states it started last night and she was unable to open her right eye. ( this information was reported to MIA Estrella) OBJECTIVE: supine in bed , Right UE positioned across abdomen and RLE in flexion and abduction with ER ? PAIN:denied pain at time of session VITALS: ?monitored by telemetry and nursing Therapeutic Activities ([id number][]): Direct one-on-one instruction in dynamic activities to improve functional performance. ? BED MOBILITY/TRANSFERS? Rolling L/R: mod A to left , max A to right Supine-sit: with HOB elevated to 50 degrees, toward right with mod A of 1? (am/pm)? Sit-stand: from bed with use of HW max A of 1 with right knee blocked and CGA of 1 x 4 trials? Stand-sit: max A of 1 x 4 trials? Bed-Chair: Max A of 1 pivot transfer to the left pt able to assist with rpivot via reach for left armrest ? Provided skilled cues and instruction on performance and technique throughout. Neuromuscular Re-education ([id number][]): Activities that facilitate re-education of movement balance, posture, coordination, and proprioception or kinesthetic sense, requiring skilled tactile and verbal cues ? Exercises/techniques: ? facilitation of body orientation to midline in sit and stand seated: SBA and VCs to sit in midline initially then performed multiple reps of down on left elbow to reduce Pusher syndrome effect with pt able to sustain down on elbow with CGA for 1minx 3 with return to midline able to sustain midline trunk with head in neutral position with SBA. B feet on floor stand: Max A and dependent for Right knee blocked and LUE Supported on HW Without right knee blocked pt with buckling. sustain stand x 3 trials for 30 secs ASSESSMENT:?Pt with no spontaneous movement in RLE today. Pt only able to elicit Right hip extension when RLE placed in full hip and knee flexion. Pt with improved sitting in midline at EOB in prep for transfers. Pt able to perform reach for left armrest in prep for transfers. Pt limited by pain in right UE (elbow ) with extension. OT notified of increased pain in RUE. Pt with increased clarity of vocalizations. Pt issued sling for use for transfers only to provide support and reduce pain in RUE. Continue to Recommend Nursing to utilize melquiades lift 2 assist for transfers for patient and staff safety d/t hemiplegia. Pt will require orthotic/bracing of right ankle to aide in knee control prior to gait training. Pt is pending prior [facility]hom insurance for [facility]. PLAN: Continue with balance retraining, transfer and motor control until discharge to acute rehab facility TREATMENT CODE/TIME: am: 84471, [id number]/ [id number] DISCHARGE RECOMMENDATION: Acute rehab facility
[2025-04-05 11:33] VITALS: BP 146/68; PULSE 77; RESP 16; TEMP 36.7; O2SAT 99
--- NOTE | 2025-04-05 12:18 | OTTR_ITS ---
Occupational Therapy Notes Occupational Therapy Inpatient Treatment Note Date: 04/05/25 PRECAUTIONS: Fall, Standard, Full SUBJECTIVE: Pt was lying in bed when OT arrived. She is having increased pain in her (R) UE. She notes that is getting increased discomfort and pain. OBJECTIVE: PAIN: c/o pain in (R) LE VITALS: Monitored by nursing. Manual Therapy [id number]: Pts (R) UE sits on her abdomen with no functional AROM a t this time. OT worked manually on pts (R) UE starting with ROM to the (R) shoulder, elbow, wrist and digits which pt tolerated well. IASTM to the medial elbow which seems to carry tension in the UE and causing pt increased pain. Pt is receptive to this, she is noting increased discomfort in the (R) LE. OT taped pts medial elbow with rock tape for support to the UE. This is decrease pts pain at this time. OT will monitor pts response to todays session and progress accordingly. OT recommends no BP being taken in the (R) UE d/t tone and pain at this time. Nursing is aware and noted on pts board. TREATMENT CODES/TIME: 08035, 20 minutes Sara Waddell OTR/[facility] [place], [place]
--- NOTE | 2025-04-05 12:19 | CMPROGNOTE_ITS ---
Date of service: 04/05/25 Time of Service: 14:12 Care Management Progress Note Progress Note Text Progress Note Text: Angela was lying in bed at the time CM met with her. She was accompanied by 2 family members. Per report, she has been accepted to [facility] pending prior authorization. CM contacted the facility to follow up; authorization has not yet been approved. Per Zandra in Admissions at [facility], admissions will be closed on 04/06/25 and will resume the following day. If prior authorization is not approved today, discharge to [facility] is anticipated on Thursday pending auth. CM will continue to follow. Discharge Potential Discharge Needs: PCP F/U Appt Anticipated Barriers to Discharge: Bed availability Patient/Family Education Needs: Review discharge instructions, discuss Ask Me Three Transportation: Other (Depending on dispo, RCT W/C van vs family) Plan: Angela accepted a bed offer from [facility] (pending prior auth). Once PA in approved, discharge coordination efforts will continue. Today vs Thursday. Transportation will be dependent on [employer] mobility, likely RCT w/c van. CM will follow. Social Determinants of Health Screening Social Determinants of health last assessed in clinic: 04/05/25 Will the Patient Participate in the Screening?: Yes Do you worry about having a steady place to live?: no Problems where you live: no known problems In the past 12 months, have you had to go without electric, gas, oil or water in your home?: no 1. Within the past 12 months, we worried whether our food would run out before we got money to buy more.: Don't know/refused 2. Within the past 12 months, the food we bought just didn't last and we didn't have money to get more.: Don't know/refused Has lack of transportation kept you from medical appointments or from doing things needed for daily living?: no Has anyone in your life made you feel unsafe or unsupported?: no How hard is it for you to pay for the very basics like food, housing, medical care, and heating? Would you say it is:: Not hard at all Do you want help finding or keeping work or a job?: I do not need or want help If for any reason you need help with day-to-day activities such as bathing, preparing meals, shopping, managing finances, etc., do you get the help you need?: I don?t need any help How often do you feel lonely or isolated from those around you?: Never Do you speak a language other than Upper Sorbian at home?: No Does the patient want assistance with any of the above?: No
--- NOTE | 2025-04-05 13:37 | CHAPLAIN ---
I had a short visit with Angela. She was resting in bed and her was visiting. I explained my role and offered support.
--- NOTE | 2025-04-05 14:12 | PGE_ITS ---
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 Ongoing plavix , ASA and high intensity Statin Tx Ongoing PT and OT consultations : please read notes- recommendation for acute intensive rehabilitation - Jorge Cronin A1C 5.2 Lipid panel see- point 4 Tele- neuro- completed CTA head and neck negative on admission Acute rehabilitation need- referral sent by CM- offer pending PA (2) Dysphasia: Status: Acute Assessment and plan: Continue speech therapy (3) Essential hypertension: Status: Acute Assessment and plan: C/W lisinopril and adjust PRN BP 130/73 (4) Hyperlipidemia: Status: Acute Assessment and plan: C/W atorvastatin. lipid panel: LDL 105 - outpatient f/u (5) DCIS (ductal carcinoma in situ): Status: Acute Assessment and plan: Hx of - outpatient f/u (6) Insomnia: Status: Acute Assessment and plan: C/W amitriptyline for insomnia Defer further management to the outpatient setting. (7) Systolic murmur: Status: Acute Assessment and plan: Echocardiogram w/o acute findings completed Discussed with Dr Donnelly Discharge Planning Discharge Plannin -48 hours to STR Subjective Subjective Patient reports: no new complaints, pain is less, tolerating liquids well, tolerating a regular diet, voiding w/o difficulty, flatus and bowel movement; d enies diarrhea, nausea, vomiting, shortness of breath or fever Exam Narrative Exam Narrative: Alert and oriented X 4, ongoing right sided stroke deficits : paralysis to R upper ext with initial spasticity progressing to flacid - marked paresis to R lower ext- 1/5, no resistance to gravity- decreased restlessness LLE , PEERLA 2/ B, cranial nerve exam : unable to shrug right shoulder, touch nose w right hand - or task requiring right limbs most likely d/t stroke, speech slurredis ongoing , and positive NIHS scale - stable - emotionally more stable today , S1, S2 regular , no murmur , clear lungs unlabored breathing, abdomen is non acute, no bladder distention Objective Last Vital Signs Temp 36.7 C 04/05/25 11:33 Pulse 77 04/05/25 11:33 Resp 16 04/05/25 11:33 BP 146/68 H 04/05/25 11:33 Pulse Ox 99 04/05/25 11:33 Laboratory Results - last 24 hr 04/05/25 06:43 WBC 6.10 RBC 4.70 Hgb 13.6 Hct 41.3 MCV 88 MCH 28.9 MCHC 32.9 RDW 13.9 Plt Count 184 MPV 11.2 H Immature Gran % 0.2 Neutrophils % 59.9 Lymphocytes % 23.0 Monocytes % 9.2 Eosinophils % 6.9 Basophils % 0.8 Nucleated RBC % 0.0 Absolute Neutrophils 3.66 Absolute Lymphocytes 1.40 Absolute Monocytes 0.56 Absolute Eosinophils 0.42 Absolute Basophils 0.05 Sodium 143 Potassium 3.8 Chloride 109 H Carbon Dioxide 24.1 Anion Gap 9.9 BUN 25 H Creatinine 1.13 H Est GFR (CKD-EPI 2020) 47.15 Glucose 97 Calcium 9.9 Magnesium 2.0 VTE Prohylaxis Risk Level: Moderate/High Risk Contraindications: None Prophylaxis: Pharmacologic Time Spent with Patient Time Spent with Patient: >50 minutes Time was spent: preparing to see the patient(eg.review tests), obtaining and/or reviewing separately otained hiistory, ordering medications,tests, procedures, referring, communicating with other health geriatric care manager, indepentently interpreting results, counseling the patient, care coordination and other
[2025-04-05 16:41] VITALS: BP 137/64; PULSE 80; RESP 17; TEMP 36.4; O2SAT 95
[2025-04-05] MEDS: Lisinopril 10 MG TAB 5 MG PO (17:47)
[2025-04-05 19:30] VITALS: BP 141/77; PULSE 80; TEMP 36.5; O2SAT 97
[2025-04-05] MEDS: Atorvastatin 40 MG TAB 80 MG PO (20:21)
[2025-04-05] MEDS: Melatonin 3 MG TAB 9 MG PO (20:21)
[2025-04-05] MEDS: Amitriptyline 10 MG TAB PO (20:21)
[2025-04-05] MEDS: LORazepam 1 MG TAB 2 MG PO (22:27)
[2025-04-05 22:47] VITALS: BP 133/82; PULSE 77; TEMP 36.5; O2SAT 98
[2025-04-06 05:38] VITALS: BP 124/70; PULSE 68; TEMP 36.7; O2SAT 97
[2025-04-06 08:16] VITALS: BP 134/82; PULSE 80; RESP 16; TEMP 36.9; O2SAT 99
[2025-04-06 11:21] VITALS: BP 138/75; PULSE 79; RESP 16; TEMP 36.9; O2SAT 96
[2025-04-06] MEDS: Lisinopril 5 MG TAB 10 MG PO (12:25)
[2025-04-06] MEDS: Enoxaparin 40 MG/0.4 ML SYR SC (12:25)
[2025-04-06] MEDS: Clopidogrel 75 MG TAB PO (12:25)
[2025-04-06] MEDS: amLODIPine 5 MG TAB 10 MG PO (12:25)
[2025-04-06] MEDS: Aspirin 81 MG CHEW PO (12:25)
[2025-04-06] MEDS: Pantoprazole 40 MG VIAL IVP (12:26)
[2025-04-06] MEDS: Normal Saline Flush 10 ML SYR IVP (12:26)
--- NOTE | 2025-04-06 13:15 | PGE_ITS ---
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 C/w plavix , ASA and high intensity Statin Tx Ongoing PT and OT consultations : please read notes- recommendation for acute intensive rehabilitation - Jorge Cronin A1C 5.2 Lipid panel see- point 4 Tele- neuro- completed- opt neuro referral needed telemetry Acute rehabilitation need- referral sent by - offer pending PA Cardiac event recorder on d/c (2) Dysphasia: Status: Acute Assessment and plan: Continue speech therapy- initial consultation was stopped per patient's request - will re-order give pills in apple sauce or pudding (3) Essential hypertension: Status: Acute Assessment and plan: On isinopril and adjust PRN BP 130/73 (4) Hyperlipidemia: Status: Acute Assessment and plan: Ongoing atorvastatin. lipid panel: LDL 105 - outpatient f/u (5) DCIS (ductal carcinoma in situ): Status: Acute Assessment and plan: Hx of - outpatient f/u as per guidelines (6) Insomnia: Status: Acute Assessment and plan: On amitriptyline for insomnia Defer further management to the outpatient setting. (7) Systolic murmur: Status: Acute Assessment and plan: Echocardiogram w/o acute findings completed Discussed with Dr Donnelly Subjective Subjective Patient reports: no new complaints, pain is less, tolerating liquids well (coughing on water - reports difficulty swallowing ), tolerating a regular diet, voiding w/o difficulty, flatus and bowel movement; denies diarrhea, nausea, vomiting, shortness of breath or fever Exam Narrative Exam Narrative: Alert and oriented X 4, ongoing right sided stroke deficits : paralysis to R upper ext/ R lower ext- , no resistance to gravity- PEERLA 2/ B, cranial nerve exam : unable to shrug right shoulder, touch nose w right hand - or task requiring right limbs most likely d/t stroke,ongoing slurred speech , and stable positive NIHS scale - emotionally more stable today , S1, S2 regular , no murmur , clear lungs unlabored breathing, abdomen is non acute, no bladder distention , no swelling to ext Objective Last Vital Signs Temp 36.9 C 04/06/25 11:21 Pulse 79 04/06/25 11:21 Resp 16 04/06/25 11:21 BP 138/75 04/06/25 11:21 Pulse Ox 96 04/06/25 11:21 VTE Prohylaxis Risk Level: Moderate/High Risk Contraindications: None Prophylaxis: Pharmacologic Time Spent with Patient Time Spent with Patient: >50 minutes Time was spent: preparing to see the patient(eg.review tests), obtaining and/or reviewing separately otained hiistory, ordering medications,tests, procedures, referring, communicating with other health career placement services counselor, indepentently interpreting results, counseling the patient, care coordination and other
[2025-04-06 15:24] VITALS: BP 131/73; PULSE 78; RESP 16; TEMP 36; O2SAT 99
[2025-04-06] MEDS: Acetaminophen 500 MG TAB 1000 MG PO ×2 (17:27→20:52)
[2025-04-06] MEDS: LORazepam 1 MG TAB 2 MG PO (18:38)
[2025-04-06 19:20] VITALS: BP 138/74; PULSE 85; RESP 16; TEMP 36.8; O2SAT 97
[2025-04-06] MEDS: Melatonin 3 MG TAB 9 MG PO (20:52)
[2025-04-06] MEDS: Atorvastatin 40 MG TAB 80 MG PO (20:52)
[2025-04-06] MEDS: Methocarbamol 500 MG TAB PO (20:52)
[2025-04-06] MEDS: Docusate Sodium 100 MG/10 ML CUP PO (20:52)
[2025-04-06] MEDS: Amitriptyline 10 MG TAB PO (20:53)
[2025-04-06] MEDS: Triamcinolone 0.1% CR 15 GM TUBE TP (20:58)
[2025-04-06 23:12] VITALS: BP 125/64; PULSE 89; RESP 16; TEMP 36.8; O2SAT 97
[2025-04-07 03:09] VITALS: BP 125/72; PULSE 66; RESP 16; TEMP 36.2; O2SAT 98
[2025-04-07] MEDS: Methocarbamol 500 MG TAB PO (06:08)
[2025-04-07 06:19] VITALS: BP 137/64; PULSE 67; RESP 16; TEMP 36.6; O2SAT 98
[2025-04-07 07:31] LABS: Abs Immature Grans 0.01 10^3/uL (0.0-0.06); HCT 41.5 % (36.0-46.0); HGB 13.7 g/dL (11.2-15.7); Immature Grans % 0.2 %; MCH 29.5 pg (27.0-33.0); MCHC 33.0 % (32.0-36.0); MCV 89 fL (80-95); MPV 11.1 fL (8.0-11.0); Platelet Count 184 10^3/uL (130-400); RBC 4.64 10^6/uL (3.93-5.22); RDW 13.9 % (11.7-14.6); RDW-SD 45.5 fL; WBC 4.64 10^3/uL (4.4-10.8)
[2025-04-07 07:57] LABS: Magnesium 2.1 mg/dL (1.6-2.6)
[2025-04-07 07:59] LABS: Anion Gap 8.7 mmol/L (3-11); BUN 25 mg/dL (9-23); CO2 24.3 mmol/L (20.0-31.0); Calcium 9.4 mg/dL (8.3-10.6); Chloride 108 mmol/L (98-107); Glucose 87 mg/dL (74-106); Potassium 4.1 mmol/L (3.5-5.1); Sodium 141 mmol/L (136-145)
[2025-04-07] MEDS: Acetaminophen 500 MG TAB 1000 MG PO ×2 (08:57→23:06)
[2025-04-07] MEDS: Aspirin 81 MG CHEW PO (08:58)
[2025-04-07] MEDS: Clopidogrel 75 MG TAB PO (08:58)
[2025-04-07] MEDS: Docusate Sodium 100 MG/10 ML CUP PO ×2 (08:58→14:23)
[2025-04-07] MEDS: Pantoprazole 40 MG VIAL IVP (08:58)
[2025-04-07] MEDS: Triamcinolone 0.1% CR 15 GM TUBE TP ×2 (08:58→20:11)
[2025-04-07] MEDS: Enoxaparin 40 MG/0.4 ML SYR SC (08:58)
[2025-04-07] MEDS: Lisinopril 5 MG TAB 10 MG PO (09:00)
[2025-04-07] MEDS: amLODIPine 5 MG TAB 10 MG PO (09:01)
--- NOTE | 2025-04-07 10:11 | W.PM.PROGNOT ---
Date of Service Date of service: 04/07/25 Time of Service: 10:11 Assessment and Plan Assessment and plan (1) Acute stroke due to ischemia: Start date: 04/07/25 Start time: 12:00 Status: Acute Assessment and plan: CTA head and neck negative on admission on 04/02 04/03 MRI of the brain: Positive for left ricks radiata acute/subacute infarct. 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: Status: Acute Assessment and plan: Initially seen on 04/03- ongoing PT with ROM exercises Pain management Failed lorazepam and failing Robaxin ordered on 04/06 HS Considering that this might be a manifestation of increased foci of brain electrica activity VS normal progression of lacunar/ ricks radiata infarction and ordering a f/u tele-neuro consultation Question: In 74 yo female with acute left coronal infarction with R sided upper hemiplegia amd R LE severe hemiparesis and spasticity progressing to spasms on the affected side waht are the recommendation for treatment and should we consider AED and what is the time frame? Tele- neuro consult pending (3) Dysphasia: Start date: 04/07/25 Start time: 12:09 Status: Acute Assessment and plan: Continue speech therapy- initial consultation was stopped per patient's request - New Speech pathology consultation pending Oral medicines administered in in apple sauce- seems to be well tolerated (4) Essential hypertension: Start date: 04/07/25 Start time: 12:09 Status: Acute Assessment and plan: [place] 125/72 [place] [address]40 -C/W Lisinopril 10 mg daily, Norvasc 10 mg daily and adjust PRN (5) Hyperlipidemia: Start date: 04/07/25 Start time: 12:09 Status: Acute Assessment and plan: C/W atorvastatin. lipid panel: LDL 105 - outpatient f/u (6) DCIS (ductal carcinoma in situ): Start date: 04/07/25 Start time: 12:09 Status: Acute Assessment and plan: Hx of - outpatient f/u as per guidelines (7) Insomnia: Status: Acute Assessment and plan: On home dose amitriptyline for insomnia Defer further management to the outpatient setting. (8) Systolic murmur: Start date: 04/07/25 Status: Acute Assessment and plan: Echocardiogram w/o acute findings completed Discussed with Dr Donnelly Subjective Subjective Patient reports: no new complaints, pain is less (no further report of R leg pain ), tolerating liquids well, tolerating a regular diet, voiding w/o difficulty, flatus and bowel movement; denies diarrhea, nausea, vomiting, shortness of breath or fever Exam Narrative Exam Narrative: Alert and oriented X 4, ongoing right sided stroke deficits :Ongoing paralysis to R upper ext/ R lower ext progressed from spasticity (04/03) to flaccidity (04/07) now minimal restriction in elbow extension up to degree -RLE no resistance to gravity- minimal movement- PEERLA 2/ B, Ongoing failure of RUE testing, right facial paralysis with prominent R nasolabial-facial fold compared to L, + R ptosis , weak cough , hemianopsia negative,dysarthria, and stable positive NIHS scale - emotionally labile today , S1, S2 regular , no murmur , clear lungs unlabored breathing, abdomen is non acute, no bladder distention , no swelling to ext Objective Last Vital Signs Temp 36.6 C 04/07/25 06:19 Pulse 67 04/07/25 06:19 Resp 16 04/07/25 06:19 BP 137/64 04/07/25 06:19 Pulse Ox 98 04/07/25 06:19 Laboratory Results - last 24 hr 04/07/25 07:03 WBC 4.64 RBC 4.64 Hgb 13.7 Hct 41.5 MCV 89 MCH 29.5 MCHC 33.0 RDW 13.9 Plt Count 184 MPV 11.1 H Immature Gran % 0.2 Neutrophils % 52.6 Lymphocytes % 29.7 Monocytes % 8.4 Eosinophils % 7.8 Basophils % 1.3 Nucleated RBC % 0.0 Absolute Neutrophils 2.44 Absolute Lymphocytes 1.38 Absolute Monocytes 0.39 Absolute Eosinophils 0.36 Absolute Basophils 0.06 Sodium 141 Potassium 4.1 Chloride 108 H Carbon Dioxide 24.3 Anion Gap 8.7 BUN 25 H Creatinine 0.98 Est GFR (CKD-EPI 2020) 55.57 Glucose 87 Calcium 9.4 Magnesium 2.1 VTE Prohylaxis Risk Level: Moderate/High Risk Contraindications: None Prophylaxis: Pharmacologic Time Spent with Patient Time Spent with Patient: >50 minutes Time was spent: preparing to see the patient(eg.review tests), obtaining and/or reviewing separately otained hiistory, ordering medications,tests, procedures, referring, communicating with other health inpatient care manager rn, indepentently interpreting results, counseling the patient, care coordination and other
--- NOTE | 2025-04-07 11:01 | CMPROGNOTE_ITS ---
Date of service: 04/07/25 Time of Service: 11:01 Care Management Progress Note Progress Note Text Progress Note Text: Angela was awake and lying in bed when CM met with her and her is present at the bedside. She's waiting to discharge to [facility] for Acute Rehab, pending PA. PA was finally received late Thursday afternoon. RCT W/C van is coordinated for 0845 tomorrow. Hospitalist is working on discharge, Cy will help complete in the morning if need be. CM will fax discharge summary in the morning, front line supervisor is working on her packet. RN to RN should be called to [phone]. Discharge Anticipated Barriers to Discharge: Bed availability and Medical Status Patient/Family Education Needs: Review discharge instructions, discuss Ask Me Three Transportation: RCT RCT Transportation: Wheel chair van Plan: Discharge to [facility] is planned for Thursday, RCT W/C van is coordinated for 0845 am. Hospitalist is working on discharge, Cy will help complete in the morning if need be. CM will fax discharge summary in the morning, front line supervisor is working on her packet. RN to RN should be called to [phone]. CM will follow. Social Determinants of Health Screening Social Determinants of health last assessed in clinic: 04/07/25 Will the Patient Participate in the Screening?: Yes Do you worry about having a steady place to live?: no Problems where you live: no known problems In the past 12 months, have you had to go without electric, gas, oil or water in your home?: no 1. Within the past 12 months, we worried whether our food would run out before we got money to buy more.: Never true 2. Within the past 12 months, the food we bought just didn't last and we didn't have money to get more.: Never true Has lack of transportation kept you from medical appointments or from doing things needed for daily living?: no Has anyone in your life made you feel unsafe or unsupported?: no How hard is it for you to pay for the very basics like food, housing, medical care, and heating? Would you say it is:: Not hard at all Do you want help finding or keeping work or a job?: I do not need or want help If for any reason you need help with day-to-day activities such as bathing, preparing meals, shopping, managing finances, etc., do you get the help you need?: I don?t need any help How often do you feel lonely or isolated from those around you?: Never Do you speak a language other than Venezuelan at home?: No Does the patient want assistance with any of the above?: No
--- NOTE | 2025-04-07 11:47 | TELEFU_ITS ---
Documented by User: Efrem Barrios 04/07/25 12:33 Date of service: 04/07/25 Time of Service: 10:05 Nutrition Note NOTE: Patient seen by dietitian on 04/07. Patient unable to speak but can answer yes/no questions. The patient has not been able to chew or swallow well, but she declines a change in diet consistency. The patient reported taking in fluids OK, and she did accept an offer for a CIB Frap nutritional supplement at lunch and dinner to increase her daily energy intake. Weight appears steady over the long- term, but long-term affect of her diet on her weight have yet to be seen. Nutrition dx: Swallowing difficultly. Nutrition intervention: Recommend further evaluation by speech therapy. Time Spent in Nutritional Counseling and Treatment: 5 min Documented by User: Eleuterio Liu RDN 04/07/25 12:39 Nutrition Note NOTE: Patient seen by dietitian on 04/07. Patient unable to speak but can answer yes/no questions. The patient has not been able to chew or swallow well, but she declines a change in diet consistency. The patient reported taking in fluids OK, and she did accept an offer for a CIB Frap nutritional supplement at lunch and dinner to increase her daily energy intake. Weight appears steady over the long- term, but long-term affect of her diet on her weight have yet to be seen. Nutrition dx: Swallowing difficultly. Nutrition intervention: Recommend further evaluation by speech therapy. Will continue to monitor ability to take foods safely and provide appropriate or desired consistencies
--- NOTE | 2025-04-07 12:17 | PTTR_ITS ---
Date of service: 04/07/25 PT Notes Visit Reasons: Cerebrovascular accident Inpatient Physical Therapy Treatment Note [facility] Date: 04/07/2025 (am/pm sessions) PRECAUTIONS:Fall Risk, Telemetry, Standard, Right hemiparesis, RUE sling for transfers only, No BP RUE, dysarthria SUBJECTIVE: am session: Pt reports she is continuing to have spasms in her right LE. pm session: Pt reported being nauseous while sitting in chair requested to return to bed. OBJECTIVE:am session: supine in bed , Right UE positioned across abdomen and RLE in flexion and abduction with ER Pt less tone and no report of pain in RUE Multiple ecchymotic areas noted to right leg with largest along right inner thigh pm session: Pt seated in chair rocking back and forth present. Pt holding emisis bag(empty). At end of session pt semifowler position with in termittent flexor synergy pattern spasm noted in RLE initiated at great toe with extension DF inversion then knee flexion with ER and abduction of hip. spasms occurring every 2-3 mins lasting 20 secs. ? PAIN:denied pain at time of session VITALS: ?monitored by telemetry and nursing Therapeutic Activities ([id number][]): Direct one-on-one instruction in dynamic activities to improve functional performance. ? BED MOBILITY/TRANSFERS? Rolling L/R: max A to left , min A to right Supine-sit: via sidelying right, toward right with mod A of 1? (am)?sit to supine: mod A for BLE via sidelying left (pm)? Sit-stand: from bed with use of HW max A of 1 with right knee blocked x 5 trials?(am/pm) ? Stand-sit: max A of 1 x 4 trials?(am/PM) dependent to block right knee ? Bed-Chair: Mod A pivot transfer to the left pt able to assist with pivot via reach for left armrest , dependent to block right knee.? Chair to bed: mod A toward left with use of bedrail dependent to block right knee Provided skilled cues and instruction on performance and technique throughout. Neuromuscular Re-education (39964a[]): Activities that facilitate re- education of movement balance, posture, coordination, and proprioception or kinesthetic sense, requiring skilled tactile and verbal cues ? Exercises/techniques: ? facilitation of body orientation to midline in sit and stand seated: SBA and VCs to sit in midline initially then performed multiple reps of down on left elbow to reduce Pusher syndrome effect with pt able to sustain down on elbow with CGA for 1minx 3 with return to midline able to sustain midline trunk with head in neutral position with SBA. B feet on floor stand: Max A and dependent for Right knee blocked and LUE Supported on HW Without right knee blocked pt with buckling. sustain stand x 3 trials for 30 secs ASSESSMENT:?Pt with no spontaneous movement in RLE today. Pt only able to elicit Right hip extension when RLE placed in full hip and knee flexion. Pt continues with improved sitting in midline at EOB in prep for transfers. Pt able to perform reach for left armrest in prep for transfers and return to midline . sling RUE for use for transfers only to provide support. Pt can be impulsive at times. Continue to Recommend Nursing to utilize melquiades lift 2 assist for transfers for patient and staff safety d/t hemiplegia. Pt will require orthotic/bracing of right ankle to aide in knee control prior to gait training. [facility]. PLAN: Continue with balance retraining, transfer and motor control until discharge to acute rehab facility TREATMENT CODE/TIME: am: 74877, 64520/ [id number] pm [id number] x 1 [id number] x 2/ [id number] DISCHARGE RECOMMENDATION: Acute rehab facility
[2025-04-07 14:58] VITALS: BP 134/64; PULSE 83; RESP 16; TEMP 36.3; O2SAT 98
[2025-04-07] MEDS: Baclofen 10 MG TAB PO ×2 (15:38→19:58)
--- NOTE | 2025-04-07 16:23 | CMDISCH_ITS ---
Date of service: 04/08/25 Time of Service: 09:01 LACE Index Scoring Tool Questions: Length of Stay (in days): 4 - 6 Was the patient admitted via the E.D.?: Yes Comorbidities: Cerebrovascular Disease, Liver or Renal Disease and Metastatic Solid Tumor (HX of DCIS breast cancer) E.D. Visits: 1 Answers: Total Score: 13 Risk of Readmission: High Risk Care Management Discharge Plan Reason for Hospitalization: CVA Discharge Plan: Angela is being transferred to [facility] for Acute Rehab and is being transported via EMS. She will follow up with specialty care providers and continue per her discharge plan of care. Patient/Family Education Needs: Review transfer instructions, discuss ask me three. Services Needed at Discharge: Transportation (Feliz kelly, coordinated by CM)
[2025-04-07 18:00] VITALS: BP 124/68; PULSE 79; RESP 14; TEMP 36.4; O2SAT 100
[2025-04-07 19:28] VITALS: BP 143/64; PULSE 80; RESP 16; TEMP 36.2; O2SAT 99
[2025-04-07] MEDS: Amitriptyline 10 MG TAB PO (19:58)
[2025-04-07] MEDS: Atorvastatin 40 MG TAB 80 MG PO (20:00)
[2025-04-07] MEDS: Melatonin 3 MG TAB 9 MG PO (20:00)
[2025-04-07] MEDS: Normal Saline Flush 10 ML SYR IVP (20:01)
[2025-04-07 23:01] VITALS: BP 142/67; PULSE 73; RESP 16; TEMP 36; O2SAT 98
[2025-04-08] MEDS: Baclofen 10 MG TAB PO (00:59)
--- NOTE | 2025-04-08 07:21 | DSE_ITS ---
Date of service: 04/08/25 Time of Service: 07:22 DS: Diagnosis Discharge Diagnosis (1) Acute stroke due to ischemia: Status: Acute (2) Spastic hemiparesis due to acute cerebral infarction: Status: Acute (3) Dysphasia: Status: Acute (4) Essential hypertension: Status: Acute (5) Hyperlipidemia: Status: Acute (6) DCIS (ductal carcinoma in situ): Status: Acute (7) Insomnia: Status: Acute (8) Systolic murmur: Status: Acute Discharge Plan Disposition Patient Disposition: Care Home Facility(SNF) Anticipated Discharge Date/Time: 04/08/25 08:45 Condition: Stable Discharge Details Reason For Visit: CVA Admit Date/Time: 04/02/25 11:44 Admit Provider: Andrés Salinas Attending Provider: Andrés Salinas Primary Care Provider: Saúl Ro Hospital Course Hospital Course: This is a 74-year-old female with a known history of breast cancer, insomnia, hypertension who woke up this morning with expressive aphasia, dysphagia and right lower extremity weakness; reporting similar transient symptoms the previous evening. Patient came into the ED for further evaluation and treatment. Work-up in the ED was negative for acute findings on CTA head and neck, chest XR and EKG. Blood work was unremarkable, mild hematuria found in the UA. Dr Rene. Neurologist recommended administration of 325 of aspirin, 300 of Plavix and stroke work-up.Te patient was admitted to the medical surgical floor with telemetry for further management by the hospitalist. 04/03/25: Progressed to RUE hemiplegia with spasticity and subsequent MRI was positive for findings consistent with left ricks radiata acute/subacute infarct, Old left MCA distribution infarct was also seen and several areas of hyperintense signal seen in the white matter on the FLAIR and T2 weighted images consistent with chronic microvascular ischemic disease noted. The patient denied previous symptoms of LMCA stroke. Echocardiogram with LVEF 75% w/o acute finding for significant valvular disease but RV was poorly visualized. Permissive hypertension period completed with resumption of antihypertensive medicines with ongoing hemodynamic stability. Ongoing physical and occupational therapy with recommendation for acute rehabilitation, speech evaluation partially completed d/t patient request to stop, but the patient was able to continue to take oral medicines with apple sauce and could also manage regular consistency food and thin liquids, ongoing speech pathology also recommended. Follow-up tele-neurology consultation with Dr Skidd with recommendation to treat spasms with scheduled Baclofen if tolerated , no benzodiazepines or AED recommended. The patient will be discharged to acute rehabilitation in [facility] on 04/08/2025 AM, with a cardiac event monitor and will need a neurology referral as per her outpatient medical provider. Follow- up with PCP within 7 days of discharge. Discussed with Dr. Andrzej Case Meds and New Rx's Prescriptions: New atorvastatin 40 mg Tablet 80 mg PO QPM Qty: 60 0RF aspirin 81 mg Tablet,Chewable 81 mg PO DAILY Qty: 30 0RF clopidogrel 75 mg Tablet 75 mg PO DAILY Qty: 30 0RF lisinopril 5 mg Tablet 10 mg PO DAILY Qty: 60 0RF melatonin 3 mg Tablet 9 mg PO HS Qty: 90 0RF polyethylene glycol 3350 17 gram Powder In Packet 17 g PO DAILY PRN Qty: 30 0RF amlodipine 5 mg Tablet 10 mg PO DAILY Qty: 60 0RF baclofen 10 mg tablet 10 mg PO TID Qty: 30 0RF acetaminophen 500 mg Tablet 1,000 mg PO TID Qty: 30 0RF Continued triamcinolone acetonide 0.1 % cream 1 applic TP BID Qty: 15 3RF amitriptyline 10 mg tablet 10 mg PO QHS Qty: 90 0RF Discontinued lisinopril 20 mg tablet 20 mg PO DAILY Qty: 90 4RF No Action amlodipine 5 mg tablet See Rx Instructions .ROUTE .COMPLEX Qty: 180 4RF Dose Instruction: TAKE 1 TABLET BY MOUTH TWICE DAILY Rx Instructions: TAKE 1 TABLET BY MOUTH TWICE DAILY Discharge Instructions Instructions: Stroke Referrals: Saúl Ro [facility]ACHER [Primary Care Provider, Medicine] Referral Note: Follow-up with PCP within 7 days of discharge- Neurology referral needed Activity:: Activity as Tolerated Equipment/Supplies:: Walker Diet:: heart healthy Discharge Orders Other Ambulatory Orders: Cardiac Event Recorder (Routine) Timeframe: [id number] Facility: [facility] - Location: Respiratory Therapy Ordered By: Anila Vee DS: Summary Time Spent with Patient providing and/or coordinating discharge services: Less than 30 minutes Status at Discharge Functional status at discharge: wheelchair bound Overall status at discharge: patient is not back to baseline Mental Status: mental status grossly normal Speech and Movement: speech and movement normal Mood: congruent mood Affect: normal affect Exam Narrative Exam Narrative: Alert and oriented X 4, ongoing right sided stroke deficits :Ongoing paralysis to R upper ext/ R lower ext progressed from spasticity (04/03) to flaccidity (04/07) now minimal restriction in elbow extension up to degree -RLE no resistance to gravity- minimal movement- PEERLA 2/ B, Ongoing failure of RUE testing, right facial paralysis with prominent R nasolabial-facial fold compared to L, + R ptosis , weak cough , hemianopsia negative,dysarthria, and stable positive NIHS scale - emotionally labile today , S1, S2 regular , no murmur , clear lungs unlabored breathing, abdomen is non acute, no bladder distention , no swelling to ext Psych Mental Status: mental status grossly normal Speech and Movement: speech and movement normal Mood: congruent mood Affect: normal affect DS: Data Vitals/I&O Vitals and I&O: Vital Signs Temperature 36.0 C L 04/07/25 23:01 Temperature Source Temporal Artery Scan 04/07/25 23:01 Pulse 73 04/07/25 23:01 Pulse Rhythm Regular 04/02/25 14:34 Pulse 71 04/02/25 12:31 Respiratory Rate 16 04/07/25 23:01 Respiratory Effort Normal 04/02/25 14:34 Respiratory Depth Normal 04/02/25 14:34 Respiratory Pattern Normal 04/02/25 14:34 Blood Pressure 142/67 H 04/07/25 23:01 Blood Pressure Mean 92 04/07/25 23:01 Blood Pressure Position Supine 04/02/25 10:36 Pulse Oximetry 98 04/07/25 23:01 Oxygen Delivery Method Room Air 04/07/25 23:01 Oxygen Flow Rate 0 04/07/25 23:01 Pain Level 5 04/07/25 23:01 Comment pt refused..pt sleeping..RN notified 04/08/25 02:57 Intake & Output 04/07/25 04/07/25 04/08/25 11:59 23:59 11:59 Intake Total 240 / 240 Balance 240 / 240 Weight 76.6 kg Intake: Oral 240 / 240 Other: Urine Color Yellow Pale Pale Yellow Yellow Urine Appearance Clear Clear Clear Urine Odor None Normal Normal Comment pt was dry at 5:57a Stool Size Small Stool Characteristics Soft Data Completed and Pending Pending Labs at Discharge: 04/02/25 04/02/25 04/02/25 10:44 11:45 11:55 WBC 8.60 RBC 4.83 Hgb 14.2 Hct 42.9 MCV 89 MCH 29.4 MCHC 33.1 RDW 14.2 Plt Count 218 MPV 11.0 Immature Gran % 0.3 Neutrophils % 70.0 Lymphocytes % 17.8 Monocytes % 6.0 Eosinophils % 5.0 Basophils % 0.9 Nucleated RBC % 0.0 Absolute Neutrophils 6.01 Absolute Lymphocytes 1.53 Absolute Monocytes 0.52 Absolute Eosinophils 0.43 Absolute Basophils 0.08 PT 9.6 INR 1.0 APTT 25.8 Sodium 142 Potassium 4.0 Chloride 108 H Carbon Dioxide 24.2 Anion Gap 9.8 BUN 21 Creatinine 1.07 H Est GFR (CKD-EPI 2020) 50.22 Glucose 102 Hemoglobin A1c Calcium 9.4 Magnesium 2.1 Total Bilirubin 0.9 AST 28 ALT 27 Alkaline Phosphatase 103 Troponin I 4 3 Total Protein 7.5 Albumin 4.4 Triglycerides Total Cholesterol LDL Cholesterol, Calc HDL Cholesterol TSH Urine Color Yellow Urine Clarity Clear Urine pH 7.0 Ur Specific [place] 1.010 Urine Protein Negative Urine Ketones Negative Urine Blood Trace-intact H Urine Nitrite Negative Urine Bilirubin Negative Urine Urobilinogen 0.2 Ur Leukocyte Esterase Negative Urine RBC 0-2 Urine WBC Negative Ur Epithelial Cells Rare Urine Crystals Negative Urine Bacteria Negative Urine Casts Negative Urine Mucus Negative Ur Culture Indicated? No Urine Glucose Negative 04/02/25 04/03/25 04/05/25 13:56 06:25 06:43 WBC 6.10 RBC 4.70 Hgb 13.6 Hct 41.3 MCV 88 MCH 28.9 MCHC 32.9 RDW 13.9 Plt Count 184 MPV 11.2 H Immature Gran % 0.2 Neutrophils % 59.9 Lymphocytes % 23.0 Monocytes % 9.2 Eosinophils % 6.9 Basophils % 0.8 Nucleated RBC % 0.0 Absolute Neutrophils 3.66 Absolute Lymphocytes 1.40 Absolute Monocytes 0.56 Absolute Eosinophils 0.42 Absolute Basophils 0.05 PT INR APTT Sodium 144 143 Potassium 3.7 3.8 Chloride 110 H 109 H Carbon Dioxide 23.2 24.1 Anion Gap 10.8 9.9 BUN 17 25 H Creatinine 0.93 1.13 H Est GFR (CKD-EPI 2020) 59.04 47.15 Glucose 101 97 Hemoglobin A1c 5.2 Calcium 9.5 9.9 Magnesium 2.0 Total Bilirubin AST ALT Alkaline Phosphatase Troponin I 5 Total Protein Albumin Triglycerides 107 Total Cholesterol 187 LDL Cholesterol, Calc 105.9 H HDL Cholesterol 60 TSH 8.45 H Urine Color Urine Clarity Urine pH Ur Specific [place] Urine Protein Urine Ketones Urine Blood Urine Nitrite Urine Bilirubin Urine Urobilinogen Ur Leukocyte Esterase Urine RBC Urine WBC Ur Epithelial Cells Urine Crystals Urine Bacteria Urine Casts Urine Mucus Ur Culture Indicated? Urine Glucose 04/07/25 07:03 WBC 4.64 RBC 4.64 Hgb 13.7 Hct 41.5 MCV 89 MCH 29.5 MCHC 33.0 RDW 13.9 Plt Count 184 MPV 11.1 H Immature Gran % 0.2 Neutrophils % 52.6 Lymphocytes % 29.7 Monocytes % 8.4 Eosinophils % 7.8 Basophils % 1.3 Nucleated RBC % 0.0 Absolute Neutrophils 2.44 Absolute Lymphocytes 1.38 Absolute Monocytes 0.39 Absolute Eosinophils 0.36 Absolute Basophils 0.06 PT INR APTT Sodium 141 Potassium 4.1 Chloride 108 H Carbon Dioxide 24.3 Anion Gap 8.7 BUN 25 H Creatinine 0.98 Est GFR (CKD-EPI 2020) 55.57 Glucose 87 Hemoglobin A1c Calcium 9.4 Magnesium 2.1 Total Bilirubin AST ALT Alkaline Phosphatase Troponin I Total Protein Albumin Triglycerides Total Cholesterol LDL Cholesterol, Calc HDL Cholesterol TSH Urine Color Urine Clarity Urine pH Ur Specific [place] Urine Protein Urine Ketones Urine Blood Urine Nitrite Urine Bilirubin Urine Urobilinogen Ur Leukocyte Esterase Urine RBC Urine WBC Ur Epithelial Cells Urine Crystals Urine Bacteria Urine Casts Urine Mucus Ur Culture Indicated? Urine Glucose PFSH All Active Problems (Updated 04/07/25 @ 14:54 by Anila Vee APRN) Spastic hemiparesis due to acute cerebral infarction (Acute) Acute stroke due to ischemia (Acute) Systolic murmur (Acute) Dysphasia (Acute) Acute CVA (cerebrovascular accident) (Acute) Hyperglycemia (Acute) Weight gain (Acute) Insomnia (Acute) Herpes zoster (Acute ~03/2021) CKD stage G3a/A1, GFR 45-59 and albumin creatinine ratio <30 mg/g (Acute) Hyperlipidemia (Acute) Urge incontinence (Acute) Nocturia (Acute) Dermatitis, seborrheic (Chronic) right ear 2-3 x year Malignant neoplasm of unspecified site of left female breast (Acute 12/18/15) [facility] Essential hypertension (Acute) DCIS (ductal carcinoma in situ) (Acute) 08/23/15; LEFT BREAST ([facility]) Adenomatous colon polyp (Acute 03/12/04) colo 2016 no polyps, rec 10 year screen Medical History (Updated 04/07/25 @ 14:54 by Anila Vee APRN) First degree burn Shoulder pain, left Recurrent dislocation of left shoulder; S/P repair Pulmonary nodules (11/10/16) [facility]; DR. LOUIS; CT stopped- no changes in nodule HTN (hypertension) Neoplasm of female breast Surgical History History of hysterectomy HYSTERECTOMY has cervix and ovaries Colonoscopy - IV Sedation (04/09/16) Family History (Updated 04/04/24 @ 10:25 by Cristina Singer) Mother , age 60's Leukemia Depression Father , age 42 Alcohol abuse Sister , age 67 Liver cancer Sister Alcohol abuse Brother , age 60 Leukemia Alcohol use disorder Maternal Grandfather Heart disease Paternal Grandfather No problems noted. Maternal Grandmother No problems noted. Paternal Grandmother No problems noted. Daughter No problems noted. Daughter No problems noted. Social History (Updated 04/04/24 @ 10:24 by Cristina Singer) Smoking/Tobacco Use Status: Never Tobacco: How many years used: 0 Second Hand Exposure: Yes Smoking risk assessment performed?: Yes Alcohol Intake: never Drug use: Never Substance use type: does not use Adopted: No Caregiver/Support person: No Household members: spouse and children Housing: house Number of Children: 2 number of grandchildren: 2 Communication Needs: None Education Level: college Details: 2yr college Do you need help understanding health information?: Rarely current occupation: [employer] Pets and animals: Yes Pets and animals: cat(s) and dog(s) Sexually active: No Do you think of yourself as: straight/heterosexual Current gender identity: female What is your relationship status?: How often do you talk on the phone with friends or family?: twice per week How often do you get together with friends or relatives?: once per week How often do you attend roman catholic or sabianism services?: decline to answer Do you belong to any clubs or organized social groups?: decline to answer Panel score (0-1 are the most socially isolated patients): 2 What type of physical activity do you participate in: walking Duration: 30-45 minutes/day Frequency: 1-2 times per week Marlena/Religious: Pentecostalism Special marlena needs: No Seatbelt use: always Helmet use: Yes Helmet use: always Drive intox or ride w/intox rolloff driver: No Firearms in home: Yes Firearms unloaded and locked: Yes Do you feel safe at home: Yes Do you feel safe in your relationship?: Yes Victim of physical abuse: No Victim of emotional abuse: No Victim of sexual abuse: No Time Spent with Patient Time Spent with Patient: <45 minutes Time was spent: preparing to see the patient(eg.review tests), obtaining and/or reviewing separately otained hiistory, ordering medications,tests, procedures, referring, communicating with other health janitor caretaker, indepentently interpreting results, counseling the patient and care coordination
--- NOTE | 2025-04-08 07:55 | NUR.NOTE ---
Nursing Note: Second attempt to give report to receiving Rehab pt is leaving at 8:30am
[2025-04-08] MEDS: Enoxaparin 40 MG/0.4 ML SYR SC (08:40)
[2025-04-08] MEDS: Pantoprazole 40 MG TABCR PO (08:40)
[2025-04-08] MEDS: Lisinopril 5 MG TAB 10 MG PO (08:40)
[2025-04-08] MEDS: Clopidogrel 75 MG TAB PO (08:40)
[2025-04-08] MEDS: amLODIPine 5 MG TAB 10 MG PO (08:40)
[2025-04-08] MEDS: Aspirin 81 MG CHEW PO (08:40)
[2025-04-08] MEDS: Baclofen 10 MG TAB 20 MG PO (08:41)
[2025-04-08] MEDS: Acetaminophen 500 MG TAB 1000 MG PO (08:41)
[2025-04-08 08:50] VITALS: BP 144/64; PULSE 78; RESP 16; TEMP 37.2; O2SAT 99
--- NOTE | 2025-04-08 09:57 | NUR.NOTE ---
Nursing Note: At 9:15am the pt was [facility] via [facility] Full report given to Mecca BELLAMY at 9:45am pt sent with information packet pts took all of pts belongings pt left with her lizbeth bear pt emotional crying pt denies pain pt remained alert and oriented x 3 garbled speech RT side flaccid arm and leg
== END 2025-04-08 09:12 | disposition skilled nursing facility (03) | DRG 65 ==
LOC: ER 10:57 → MS 16:10
PROVIDERS: Nurse Practitioner Acute Care; Admitting Provider Family Medicine; Emergency Provider Physician Assistant; PCP Nurse Practitioner Family; Responsible Provider Family Medicine; Visit Provider Family Medicine
DX: I63.89 Other cerebral infarction (principal); G81.11 Spastic hemiplegia affecting right dominant side; R47.02 Dysphasia; R29.810 Facial weakness; E78.5 Hyperlipidemia, unspecified; G47.00 Insomnia, unspecified; R01.1 Cardiac murmur, unspecified; I12.9 Hypertensive chronic kidney disease with stage 1 through stage 4 chronic kidney disease, or unspecified chronic kidney disease; N18.31 Chronic kidney disease, stage 3a; R31.9 Hematuria, unspecified; R73.9 Hyperglycemia, unspecified; N39.41 Urge incontinence; Z86.73 Personal history of transient ischemic attack (TIA), and cerebral infarction without residual deficits; R29.705 NIHSS score 5; Z85.3 Personal history of malignant neoplasm of breast; Z79.899 Other long term (current) drug therapy
CPT/HCPCS: 00123; 36415; 36416; 70496; 70498; 80048; 80053; 80061; 82962; 92610; 93005; 97112; 97140; 97162; 97167; 97530; 97535; 99285; J1650; 70551; 71045; 81003; 81015; 83036; 83735; 84443; 84484; 85025; 85610; 85730; 93010; 93306; 99223; 99233; 99238; J1885; J2470; J3490